=== PATIENT | female | born 1950 | race Caucasian/White ===

== ENCOUNTER → 2019-05-17 11:01 | Outpatient (BNVA) | payer MEDICARE, SELFPAY | PROVIDERS: Family Provider Family Medicine; PCP Family Medicine; Visit Provider Nurse Practitioner | DX: J40 Bronchitis, not specified as acute or chronic (principal); R09.81 Nasal congestion; R50.9 Fever, unspecified | CPT/HCPCS: 87804 ==

== ENCOUNTER → 2019-05-18 14:13 | Outpatient (BNVA) | payer MEDICARE, SELFPAY | PROVIDERS: Family Provider Family Medicine; PCP Family Medicine; Visit Provider Internal Medicine Rheumatology | DX: M05.759 Rheumatoid arthritis with rheumatoid factor of unspecified hip without organ or systems involvement (principal); Z79.899 Other long term (current) drug therapy; Z11.1 Encounter for screening for respiratory tuberculosis; Z11.59 Encounter for screening for other viral diseases; M19.90 Unspecified osteoarthritis, unspecified site; E11.9 Type 2 diabetes mellitus without complications; M25.552 Pain in left hip; Z79.84 Long term (current) use of oral hypoglycemic drugs; Z79.52 Long term (current) use of systemic steroids | CPT/HCPCS: 36415; 82565; 82652; 85025; 85651; 86140; 86480; 86704; 86705; 86706; 86709; 86803; 87340; 99204 ==

== ENCOUNTER 2019-05-25 10:47 | Outpatient (CLI) | payer MEDICARE, SELFPAY ==
--- NOTE | 2019-05-25 | XR_ITS ---
WS: [id number] Bilateral hips. HISTORY: Inflammatory arthritis. Mild narrowing of each hip joint. Mild osteophytic ridging around the acetabulum. No osseous destruct ion. No subluxation or erosions. XR/XR hip BI 3-4V wo/w pel [id number] IMPRESSION: Mild degenerative joint disease at each hip.
--- NOTE | 2019-05-25 10:53 | XR_ITS ---
WS: [id number] RIGHT FOOT: 3 VIEW(S) TECHNIQUE: PA, oblique and lateral. HISTORY: inflammatory arthritis COMPARISON: None available. No acute fracture or dislocation. Mild degenerative changes at the first metatarsophalangeal joint. N o erosions. Normal tarsal/metatarsal alignment. No soft tissue abnormality or bone destruction. Enthesopathy at the Achilles tendon attachment. XR/XR foot RT min 3V* [id number] IMPRESSION: Mild osteoarthritis first metatarsophalangeal joint.
--- NOTE | 2019-05-25 10:53 | XR_ITS ---
WS: [id number] RIGHT HAND: 3 VIEW(S) TECHNIQUE: PA, oblique and lateral. HISTORY: inflammatory arthritis COMPARISON: None available. No acute fracture or dislocation. Mild diffuse interphalangeal joint space narrowing. Early seagull wing deformities at the PIP joints. No marginal erosions. XR/XR hand RT min 3V* [id number] IMPRESSION: Mild interphalangeal joint space narrowing. Involves both the DIP and PIP joint s. Osteoarthritis and erosive arthritis should be considered.
--- NOTE | 2019-05-25 10:53 | XR_ITS ---
WS: [id number] CHEST 2 VIEWS HISTORY: inflammatory arthritis COMPARISON: 01/14/2019 Lungs: Hyperinflated lungs from emphysema. Flattening of the diaphragms. No pulmonary nodule or mass. Normal vasculature. Cardiac size: Normal. Mediastinum/Aorta: Normal mediastinum. Bones: Mild increase in thoracic kyphosis. XR/XR chest 2V* [id number] IMPRESSION: 1. Mild chronic emphysema. 2. No acute cardiopulmonary disease.
--- NOTE | 2019-05-25 10:53 | XR_ITS ---
WS: [id number] LEFT HAND: 3 VIEW(S) TECHNIQUE: PA, oblique and lateral. HISTORY: inflammatory arthritis COMPARISON: None available. No acute fracture or dislocation. No periarticular osteopenia. Mild narrowing of the interphalangeal joint spaces. Involvement of both the DIP joints and the PIP marcin ints. Mild early gullwing deformities greatest involving the PIP joints. Mild narrowing of first carp ometacarpal joint. No subluxation or erosions. XR/XR hand LT min 3V* [id number] IMPRESSION: 1. Mild changes of osteoarthritis and possible erosive arthritis. 2. No subluxation. 3. Moderate osteoarthritis at the first carpometacarpal joint.
--- NOTE | 2019-05-25 10:53 | XR_ITS ---
WS: [id number] LEFT FOOT: 3 VIEW(S) TECHNIQUE: PA, oblique and lateral. HISTORY: inflammatory arthritis COMPARISON: None available. No acute fracture or dislocation. Normal tarsal/metatarsal alignment. Mild narrowing of the first metatarsophalangeal joint. No subluxa tion. No soft tissue abnormality or bone destruction. XR/XR foot LT min 3V* [id number] IMPRESSION: Mild osteoarthritis at the first metatarsophalangeal joint.
== END 2019-05-25 10:48 | disposition home or self-care (01) ==
LOC: RADWPI 10:51
PROVIDERS: Family Provider Family Medicine; PCP Family Medicine; Referring Provider Family Medicine; Visit Provider Internal Medicine Rheumatology
DX: M18.0 Bilateral primary osteoarthritis of first carpometacarpal joints (principal); M19.072 Primary osteoarthritis, left ankle and foot; M19.071 Primary osteoarthritis, right ankle and foot; J43.9 Emphysema, unspecified; Z79.899 Other long term (current) drug therapy; M16.0 Bilateral primary osteoarthritis of hip
CPT/HCPCS: 71046; 73130; 73522; 73630

== ENCOUNTER → 2019-06-01 14:31 | Outpatient (BNVA) | payer MEDICARE, SELFPAY | PROVIDERS: Family Provider Family Medicine; PCP Family Medicine; Referring Provider Family Medicine; Visit Provider Internal Medicine Rheumatology | DX: M05.9 Rheumatoid arthritis with rheumatoid factor, unspecified (principal); R76.8 Other specified abnormal immunological findings in serum; Z11.59 Encounter for screening for other viral diseases; M16.11 Unilateral primary osteoarthritis, right hip; E11.9 Type 2 diabetes mellitus without complications; Z79.84 Long term (current) use of oral hypoglycemic drugs | CPT/HCPCS: 86704; 86705; 87517; 99214 ==

== ENCOUNTER 2019-06-10 11:37 | Inpatient (IN) | payer MEDICARE, SELFPAY ==
[2019-06-10] VITALS (9 sets, daily range): BP systolic 123–156; BP diastolic 72–83; PULSE 76–88; RESP 16–20; TEMP 37.1–38.9; O2SAT 92–98; BMI 27.1
--- NOTE | 2019-06-10 11:50 | ED_ITS ---
Entered by Elliot Camarillo, acting as scribe for Jun 10, 2019 11:37 HPI - Abdominal Pain General: Chief Complaint: Abdominal Pain Stated Complaint: ABD PAIN Time Seen by Provider: 06/10/19 11:50 History of Present Illness: HPI narrative: 69 yo female presents with abd pain. Pt states that her pain started yesterday, her pain has worsened today. pt states that she has a history of diverticulitis. Pt denies burning with urination or blood in her urine. Pt states that she is nauseated. Pt states that she had a bowel movement yesterday, it was a little loose. Pt denies black or bloody stool. MD elicited complaint: abdominal pain Associated Symptoms: Reports nausea; Denies chills, dysuria and fever(s) Review of Systems Const: Denies: fever, chills, body aches, change in appetite, change in weight, fatigue, malaise or night sweats Eyes: Denies: change in vision, blurry vision, blind spots, photophobia, eye discomfort or eye discharge ENMT: Denies: throat pain, uvular edema, enlarged tonsils, painful swallowing, hoarseness, mouth pain or swelling of lips/tongue Card: Denies: chest pain, palpitations, irregular heart rhythm, edema, swelling of feet/ankles, lightheadedness or shortness of breath when lying down Resp: Denies: shortness of breath, productive cough, non-productive cough, wheezing, stridor or pain on inspiration GI: Reports: abdominal pain and nausea : Denies: flank pain, difficulty urinating, painful urination, urinary frequency, urinary urgency or urinary hesitancy Musc: Denies: neck pain, back pain, extremity pain, extremity swelling or joint pain Skin/Breast: Denies: rash, itching, redness, sensitivity to light or skin pain Neuro: Denies: headache, numbness in extremities, weakness in extremities, changes in sensation or lack of coordination Psych: Denies: anxiety, depression, mood swings, panic attacks or sleeping less PFSH ED PFSH: Statuses (acute, chronic, etc) shown below reflect problem list status as previously entered and may not be historically accurate Medical History Diabetes mellitus (Acute) High risk medication use (Acute) Osteoarthritis (Acute) Rheumatoid arthritis (Acute) Family History Father Cancer Grandmother Cancer Mother Diabetes Rheumatoid arthritis Social History Smoking and tobacco status: current every day smoker cigarettes Quit status (tobacco): considering quitting Alcohol intake: never History of recent travel: No Physical Exam Const: COMMON NORMALS: no apparent distress, average body habitus, oriented x3, no limitations, healthy appearing, alert and well nourished HENMT: COMMON NORMALS: normocephalic, head/scalp atraumatic, hearing grossly normal bilaterally, external ears normal, EAC's normal, TM's normal bilaterally, external nose normal, nasal mucous membranes and turbinates normal, moist oral mucous membranes, oropharynx normal, dentition normal and gingiva normal HEAD & SCALP: normocephalic and atraumatic NOSE: external nose normal and nasal mucous membranes and turbinates normal EXTERNAL EAR: Yes external ears normal EXTERNAL AUDITORY CANAL: EAC's normal TYMPANIC MEMBRANE: TM's normal bilaterally THROAT: no uvular edema Eye: COMMON NORMALS: PERRL, EOMs intact bilaterally, conjunctivae normal, no scleral icterus, no papilledema, normal visual de leon by confrontation and fundi normal bilaterally CONJUNCTIVA: Yes conjunctivae normal PUPIL: Yes PERRL DIRECT OPHTHALMOSCOPY: Yes no papilledema and Yes fundi normal bilaterally Neck/C-Spine: COMMON NORMALS: full ROM, no lymphadenopathy, supple, no meningeal signs, no JVD, thyroid normal and no carotid bruits THYROID: thyroid normal Chest: COMMONS NORMALS: inspection of chest normal and palpation of chest normal Resp: COMMON NORMALS: normal respiratory effort, no retractions, no use of accessory muscles, clear to auscultation bilaterally and percussion normal AUSCULTATION: clear to auscultation bilaterally PERCUSSION: percussion normal Cardio: COMMON NORMALS: no JVD, regular rate, regular rhythm, S1 normal heart sound, S2 normal heart sound, no gallops, no clicks, no murmurs, no rub and peripheral pulses 2+ throughout RATE: regular rate RHYTHM: regular rhythm HEART SOUNDS: S1 normal and S2 normal PERIPHERAL PULSES: pulses 2+ throughout GI: COMMON NORMALS: soft to palpation; negative for non-tender PALPATION: Yes soft and Yes tender (diffusely.) : COMMON NORMALS: Yes no CVA tenderness and Yes external appearance normal BLADDER/KIDNEY EXAM: Yes no CVA tenderness Back/Pelvis: COMMON NORMALS: no CVA tenderness, thoracic and lumbar spine normal to inspection, no thoracic nor lumbar tenderness, thoraco-lumbar ROM normal and straight leg raise negative bilaterally Extremity: COMMON NORMALS: normal to inspection, full ROM, normal capillary refill, no joint enlargement, no clubbing, cyanosis or edema, no calf tenderness and no pedal edema Neuro: COMMON NORMALS: oriented x3 SENSORIUM/ORIENTATION: Yes alert MENINGEAL SIGNS: Yes no meningeal signs Skin: COMMON NORMALS: no rashes or lesions noted, no wounds, skin turgor normal, no jaundice, no petechiae and no mottling GENERAL SKIN EXAM: no rashes or lesions noted and turgor normal Course Vital Signs: Vital signs: Vital Signs Temperature 99 F 06/10/19 11:41 Pulse Rate 80 06/10/19 11:41 Respiratory Rate 16 06/10/19 12:40 Blood Pressure 156/83 06/10/19 11:41 Pulse Oximetry 98 06/10/19 12:40 MDM - Abdominal Pain Lab Data: Labs: Lab Results 06/10/19 06/10/19 06/10/19 Range/Units 12:03 12:03 12:10 WBC 10.4 H (4.0-10.0) 10^3/ uL RBC 5.33 H (4.1-5.3) 10^6/u L Hgb 15.7 H (11.5-15.3) g/dL Hct 47.2 H (37.0-47.0) % MCV 88.6 (81-99) fL MCH 29.5 (28.0-34.0) pg MCHC 33.3 (30.0-36.0) g/dL RDW 12.0 L (12.1-15.1) % Plt Count 196 (130-400) 10^3/c mm MPV 10.3 (7.4-10.4) fL Neut % (Auto) 69.4 % Lymph % (Auto) 20.5 % [place] % (Auto) 7.6 % Eos % (Auto) 1.3 % Baso % (Auto) 0.8 % Neut # (Auto) 7.2 (1.8-7.7) 10^3/u L Lymph # (Auto) 2.1 (0.8-4.8) 10^3/u L [place] # (Auto) 0.8 (0.2-0.9) 10^3/u L Eos # (Auto) 0.1 (0.0-0.8) 10^3/u L Baso # (Auto) 0.1 (0.0-0.1) 10^3/u L Nucleated RBC % (a uto) 0 % Nucleated RBCs # 0.0 /100WBC Sodium 135 L (136-145) mmol/L Potassium 4.1 (3.5-5.1) mmol/L Chloride 96 L (98-107) mmol/L Carbon Dioxide 25 (22-29) mmol/L Anion Gap 18.1 (5-19) BUN 12 (8-23) mg/dL Creatinine 0.6 (0.5-0.9) mg/dL GFR Calculation 98.8 (90-130) mL/min Glucose 352 H (74-106) mg/dL Lactate 2.1 (0.5-2.2) mmol/L Calcium 9.5 (8.5-10.5) mg/dL Total Bilirubin 0.5 (0.15-1.2) mg/dL AST 14 (0-32) U/L ALT 16 (0-33) U/L Alkaline Phosphata se 97 (35-105) IU/L Total Protein 7.6 (6.6-8.7) g/dL Albumin 3.8 (3.5-5.2) g/dL Globulin 3.8 (1.3-4.6) g/dL Discharge Plan Discharge Prescriptions: No Action metformin 850 mg tablet 850 mg PO BID RF: 0 glipizide 10 mg tablet extended release 24hr 10 mg PO BID RF: 0 meloxicam 15 mg tablet 15 mg PO ONCE RF: 0 cholecalciferol (vitamin D3) 5,000 unit capsule 5,000 unit PO .COMPLEX RF: 0 pantoprazole 40 mg tablet,delayed release (DR/EC) 40 mg PO BID RF: 0 Coding Level of Care Code ED Information Writer for [facility] Fwd Exam Problem Focused The documentation recorded by the Marquise martinez Kialy, accurately reflects the service I personally performed and the decisions made by , Jluis Thomas, DO Jun 10, 2019 11:37
--- NOTE | 2019-06-10 11:54 | XR_ITS ---
WS: [id number] Portable AP upright chest, 06/10/2019 Clinical Data: abd pain Comparison: PA and lateral chest, 05/25/2019 Findings: No nodules, masses or effusions are seen. The heart is normal. The pulmonary vascularity is not increased. No pneumonia or pneumothorax is seen. The aortic arch and descending aorta show tortu osity XR/XR chest 1V portable [id number] Impression: Atherosclerosis.
--- NOTE | 2019-06-10 11:56 | CT_ITS ---
WS: [id number] CT ABDOMEN AND PELVIS WITH CONTRAST HISTORY: abd pain, recurring abdominal pain for 3 days. TECHNIQUE: Imaging performed of the abdomen and pelvis with IV contrast. Single phase imaging of the abdomen. Coronal and sagittal reformats are submitted. All CT scans at [facility] use at least one of these dose optimization techniques: automated exposure control; mA and/or kV adjustment per patient size (includes targeted exams where dose is matched to clinical indication); or iterativ e reconstruction. IV CONTRAST: Omnipaque 300; 95 mL IV. Oral contrast: No DLP: 911.09 mGy.cm COMPARISON: 02/12/2019 Lower thorax: Lung bases are clear. Heart is normal size. No hiatal hernia. Liver/biliary system: Normal size with no intrahepatic dilatation. Gallbladder: Status post cholecystectomy. Pancreas: Normal. Spleen: Normal size spleen with numerous granulomata. Adrenal glands: Normal RIGHT adrenal gland. There is a stable 1.2 cm nodule associated with the later al limb of the LEFT adrenal gland. Right kidney: Normal. Left kidney: Normal. Aorta: Normal. Lymphadenopathy: None. Free fluid: There is a small amount of fluid in the pelvis. GI tract: Appendix has been removed. There is an area of severe inflammation surrounding the sigmoid. Inflammatory lesion extends over a length of approximately 10 cm with numerous diverticula. There is significant infiltration of the pericolonic fat and hyperemia of the vasa recta. Marked wall thicken ing with no abscess. Abdominal wall: Unremarkable abdominal wall. No hernia. Pelvis: Urinary bladder is normal. Prior hysterectomy. Small amount of free fluid in the LEFT pelvis. Bones: No compression fracture. No osteoblastic or osteolytic bone disease. CT/CT abdomen pelvis w con* [id number] IMPRESSION: 1. Moderate to severe acute sigmoid diverticulitis. No abscess at this time. 2. Small amount of free fluid in the LEFT pelvis. 3. Prior hysterectomy, cholecystectomy and appendectomy.
[2019-06-10 12:17] LABS: Basophils # 0.1 10^3/uL (0.0-0.1); Basophils % 0.8 %; Eosinophils # 0.1 10^3/uL (0.0-0.8); Eosinophils % 1.3 %; Hematocrit 47.2 % (37.0-47.0); Hemoglobin 15.7 g/dL (11.5-15.3); Lymphocytes # 2.1 10^3/uL (0.8-4.8); Lymphocytes % 20.5 %; Mean Corpuscular HGB Conc 33.3 g/dL (30.0-36.0); Mean Corpuscular Hemoglobin 29.5 pg (28.0-34.0); Mean Corpuscular Volume 88.6 fL (81-99); Mean Platelet Volume 10.3 fL (7.4-10.4); Monocytes # 0.8 10^3/uL (0.2-0.9); Monocytes % 7.6 %; Neutrophils # 7.2 10^3/uL (1.8-7.7); Neutrophils % 69.4 %; Nucleated Red Blood Cells % 0 %; Platelet Count 196 10^3/cmm (130-400); Red Blood Count 5.33 10^6/uL (4.1-5.3); White Blood Count 10.4 10^3/uL (4.0-10.0)
[2019-06-10 12:35] LABS: Lactate (Lactic Acid level) 2.1 mmol/L (0.5-2.2)
[2019-06-10 12:36] LABS: Alanine Aminotransferase 16 U/L (0-33); Albumin Level 3.8 g/dL (3.5-5.2); Alkaline Phosphatase 97 IU/L (35-105); Anion Gap 18.1 (5-19); Aspartate Amino Transferase 14 U/L (0-32); Blood Urea Nitrogen 12 mg/dL (8-23); Calcium 9.5 mg/dL (8.5-10.5); Carbon Dioxide 25 mmol/L (22-29); Chloride 96 mmol/L (98-107); Globulin 3.8 g/dL (1.3-4.6); Glomerular Filtration Rate 98.8 mL/min (90-130); Glucose 352 mg/dL (74-106); Potassium 4.1 mmol/L (3.5-5.1); Sodium 135 mmol/L (136-145); Total Bilirubin 0.5 mg/dL (0.15-1.2); Total Protein 7.6 g/dL (6.6-8.7)
[2019-06-10] MEDS: iohexol 300 mg/mL 100 mL Btl IV (12:37)
[2019-06-10] MEDS: ondansetron 2 mg/ML SDV 2 mL 4 MG IVP ×3 (12:40→19:39)
[2019-06-10] MEDS: morphine 4 mg/mL SDV 1 mL 1 MG IVP (12:40)
[2019-06-10] MEDS: sodium chloride 0.9% 500 ML IV (12:42)
--- NOTE | 2019-06-10 13:56 | PM.HP ---
Providers/Chief Complaint Primary Care Provider: Naima Tamayo DO Chief Complaint: ABD PAIN History of Present Illness Monica Wu is a 69 year old female that presents to the hospital with 5 to 6 days of abdominal pain, mainly suprapubic. She reports she has had multiple episodes of diverticulitis in the past. She has had some low-grade temperatures and chills. She has had no vomiting but some nausea. She reports she still has bowel movements. She denies any blood in her stool, or diarrhea. She reports she has not been on any antibiotics at this time for her condition. Review of Systems General: Reports: 10 or more systems reviewed and unremarkable except in HPI and below Const: Reports: fever and chills Eyes: Denies: change in vision ENMT: Denies: throat pain Card: Denies: chest pain Resp: Denies: shortness of breath GI: Reports: abdominal pain : Denies: flank pain Musc: Reports: joint stiffness Skin/Breast: Denies: rash Neuro: Denies: headache Psych: Denies: anxiety Endo: Denies: excessive urination Nico/Lymph: Denies: easy bruising All/Imm: Denies: hives Medications/Allergies Home Medications Medication Instructions Recorded Confirmed Last Taken Type ergocalciferol (vitamin D2) 50,000 unit PO Q7D 06/10/19 06/10/19 06/09/19 History [Vitamin D2] Allergies Allergy/AdvReac Type Severity Reaction Status Date / Time codeine Allergy ALGY-Anaphy Uncoded 06/01/19 14:46 laxis PFSH Acute PFSH: Statuses (acute, chronic, etc) shown below reflect problem list status as previously entered and may not be historically accurate Medical History (Updated 06/10/19 @ 14:06 by Raheem Bray MD) Adrenal adenoma (Acute) Diabetes mellitus (Acute) Sliding scale insulin Diverticulitis (Inactive) High risk medication use (Acute) Osteoarthritis (Acute) Rheumatoid arthritis (Acute) Currently being evaluated by rheumatology. Home medicine was only meloxicam. Not currently on any rheumatologic/immune suppressing medication. Surgical History (Updated 06/10/19 @ 14:00 by Raheem Bray MD) History of cataract surgery (Acute) History of cholecystectomy (Acute) History of hysterectomy (Acute) History of removal of ovarian cyst (Acute) Family History Father Cancer Grandmother Cancer Mother Diabetes Rheumatoid arthritis Social History Smoking and tobacco status: current every day smoker cigarettes Quit status (tobacco): considering quitting Alcohol intake: never History of recent travel: No Vitals/I&O/Wt Last Vital Signs Temp 99 F 06/10/19 11:41 Pulse 80 06/10/19 11:41 Resp 16 06/10/19 12:40 BP 156/83 06/10/19 11:41 Pulse Ox 98 06/10/19 12:40 Weight last 48 hrs Weight 78.471 kg Physical Exam Narrative: EXAM NARRATIVE: General exam is a white female in moderate abdominal pain HEENT: Pupils equally round. Oropharynx clear. Mucous membranes moist Neck is supple no lymphadenopathy or thyromegaly Cardiovascular regular in rhythm without murmur no S3 or S4 Lungs clear no wheezing or crackles Abdomen is soft with positive bowel sounds. Tenderness is present below the umbilicus on both sides. was deferred Extremities show no cyanosis clubbing or edema, cap refill brisk Skin no rash Neuro no focal deficits Data : 06/10/19 12:03 06/10/19 12:03 Micro: Microbiology 06/10/19 12:22 Blood Culture - Preliminary Blood SPECIMEN COLLECTED 06/10/19 12:10 Blood Culture - Preliminary Blood SPECIMEN COLLECTED Other data: CT scan demonstrated moderate to severe diverticulitis. Urine has not yet been reviewed. Chest x-ray negative. Blood cultures drawn A&P Assessment and plan (1) Diverticulitis: Moderate to severe diverticulitis. White blood cell count only slightly elevated. Low-grade temperature at home. Observation currently. Placed on IV Zosyn. Clear liquid diet. Status: Inactive Code(s): K57.92 - Diverticulitis of intestine, part unspecified, without perforation or abscess without bleeding (2) Diabetes mellitus: Status: Acute Qualifiers: Diabetes mellitus type: type 2 Diabetes mellitus chcf insulin use: without chcf use Code(s): E11.9 - Type 2 diabetes mellitus without complications (3) Rheumatoid arthritis: Status: Acute Code(s): M06.9 - Rheumatoid arthritis, unspecified Additional A&P Information Tobacco dependency. Counseling occurred. History of adrenal tumor, benign according to patient Attestations Medical Necessity Statement*: Will need less than 2 midnight stay for evaluation treatment of diverticulitis Coding Level of Care Code Acute Blower Installer for [facility] Fw Diagnoses Diverticulitis K57.92 Diabetes mellitus E11.9 Diabetes mellitus type: type 2 Diabetes mellitus regional intermodal truck driver insulin use: without regional intermodal truck driver use Rheumatoid arthritis M06.9
[2019-06-10 14:00] LABS: Add Urine Microscopic? NO
[2019-06-10 14:03] LABS: Bilirubin Urine Neg (NEGATIVE); Blood Urine Neg (Negative); Glucose Urine UA 4+ (Normal); Ketones Urine Negative (Negative); Leukocyte Esterase Urine Negative (Negative); Nitrate Urine Negative (Negative); Protein Urine Neg (Negative); Specific Gravity, Urine 1.005 (1.005-1.030); Urine Appearance Clear (CLEAR); Urine Color Straw (Yellow); Urobilinogen Urine Norm (Negative); pH Urine 5 (5-7)
[2019-06-10] MEDS: morphine 4 mg/mL SDV 1 mL 2 MG IVP ×2 (14:59→18:23)
[2019-06-10] MEDS: sodium chloride 0.9% 1,000 ML 100 ML IV (15:01)
[2019-06-10] MEDS: enoxaparin 40 mg/0.4 mL Syringe SUBCUT (15:59)
[2019-06-10] MEDS: piperacillin-tazobactam 3.375 GM in sodium chloride 0.9% (plus) 50 ML IV ×2 (16:00→22:51)
[2019-06-10] MEDS: pantoprazole DR 40 mg Tablet PO (16:01)
[2019-06-10 16:03] LABS: Glucose Point of Care 216 mg/dL (70-110)
[2019-06-10 20:25] LABS: Influenza A by IFA Negative (Negative); Influenza B by IFA Negative (Negative)
[2019-06-10] MEDS: acetaminophen 325 mg Tablet 650 MG PO (20:31)
[2019-06-10 21:10] LABS: Glucose Point of Care 260 mg/dL (70-110)
[2019-06-10 21:38] LABS: Protein Urine Neg (Negative); Specific Gravity, Urine 1.015 (1.005-1.030); Urine Appearance Clear (CLEAR); Urine Color Yellow (Yellow); pH Urine 5 (5-7)
[2019-06-10 21:39] LABS: Bilirubin Urine Neg (NEGATIVE); Blood Urine Neg (Negative); Glucose Urine UA 4+ (Normal); Ketones Urine Negative (Negative); Leukocyte Esterase Urine Negative (Negative); Nitrate Urine Negative (Negative); Urobilinogen Urine Norm (Negative)
[2019-06-10 21:41] LABS: Add Urine Culture? No; Bacteria Urine TRACE; RBC Urine 0-4 /hpf (0-2)
[2019-06-11] VITALS (11 sets, daily range): BP systolic 92–122; BP diastolic 49–68; PULSE 63–74; RESP 16–18; TEMP 36.6–37.8; O2SAT 90–95
[2019-06-11] MEDS: sodium chloride 0.9% 1,000 ML 100 ML IV ×3 (00:38→22:26)
[2019-06-11 05:23] LABS: Basophils # 0.1 10^3/uL (0.0-0.1); Basophils % 0.8 %; Eosinophils # 0.1 10^3/uL (0.0-0.8); Eosinophils % 2.1 %; Hemoglobin 13.6 g/dL (11.5-15.3); Lymphocytes # 1.9 10^3/uL (0.8-4.8); Lymphocytes % 30.9 %; Mean Corpuscular HGB Conc 33.2 g/dL (30.0-36.0); Mean Corpuscular Hemoglobin 29.4 pg (28.0-34.0); Mean Corpuscular Volume 88.6 fL (81-99); Mean Platelet Volume 10.2 fL (7.4-10.4); Monocytes # 0.6 10^3/uL (0.2-0.9); Monocytes % 9.6 %; Neutrophils # 3.5 10^3/uL (1.8-7.7); Neutrophils % 56.4 %; Nucleated Red Blood Cells % 0 %; Platelet Count 164 10^3/cmm (130-400); Red Blood Count 4.63 10^6/uL (4.1-5.3); White Blood Count 6.2 10^3/uL (4.0-10.0)
[2019-06-11] MEDS: morphine 4 mg/mL SDV 1 mL 2 MG IVP ×3 (05:36→14:50)
[2019-06-11] MEDS: ondansetron 2 mg/ML SDV 2 mL 4 MG IVP ×3 (05:36→18:05)
[2019-06-11 05:43] LABS: Anion Gap 13.1 (5-19); Blood Urea Nitrogen 6 mg/dL (8-23); Calcium 8.9 mg/dL (8.5-10.5); Carbon Dioxide 25 mmol/L (22-29); Chloride 104 mmol/L (98-107); Glomerular Filtration Rate 98.8 mL/min (90-130); Glucose 224 mg/dL (74-106); Osmolality Calculated 289 mOsm/kg (285-295); Potassium 4.1 mmol/L (3.5-5.1); Sodium 138 mmol/L (136-145)
[2019-06-11 06:41] LABS: Glucose Point of Care 239 mg/dL (70-110)
[2019-06-11] MEDS: piperacillin-tazobactam 3.375 GM in sodium chloride 0.9% (plus) 50 ML IV ×3 (06:58→22:59)
[2019-06-11 10:38] LABS: Glucose Point of Care 292 mg/dL (70-110)
--- NOTE | 2019-06-11 13:09 | PC.CHAP ---
Pastoral Care Encounter/Spiritual Assessment Type of Contact [] Declined metal off bearer visit [] Patient/Family/Request visit [] Outpatient visit [] Follow-up visit [] Physician referral [] Code/Alert [x] Routine visit [] Staff referral [] Actively dying [] Patient sleeping [] Family support [] [] Out of room [] Palliative care [] [] Receiving care in room [] Pre-surgical visit [] Trauma [] Long length of stay [] ICU visit [] Other: Relational/Emotional Strength [x] Patient feels connected with others/family/visitors/staff [] Distress [] Loneliness/isolation [] Abandonment Spirituality of Patient [x] Person of Ellie [x] Attends Amish of their Ellie [] Believes in Prayer [] Reads Bible or Rastafari materials [x] There are Spiritual issues to be addressed Tissue Specialist Interventions [x] Prayer [] Active listening [] Non-anxious presence [] Spiritual/emotional support [] Crisis/trauma care [] Spiritual counseling [] Bereavement support [] Provided bereavement packet [] Provided Bible/devotional materials [] Provided toy/stuffed animal, coloring book to patient or family member [] Provided Communion [] Anointing/[place] [] Salvation [x] Completed spiritual assessment [] Other: Impact on Illness or Injury [] Angry [] Fearful [] Anxious [] Often cries [] Exhaustion [] Unable to work [] Unable to attend evangelical [] Unable to walk/stand [] Unable to read [] Unable to drive [] Unable to eat/drink [] Unable to sleep [] Unable to be with family [] Patient intubated [] Other: Summary patient feelling better but still has paing Time spent with patient 10 min
--- NOTE | 2019-06-11 13:40 | P.PN_ITS ---
Subjective Subjective: Interval history: Monica reports she is feeling better. Abdominal pain is less. Fevers noted yesterday. Medications: Reviewed: Yes Vitals/I&O/Wt Last Vital Signs Temp 99.5 F 06/11/19 11:25 Pulse 73 06/11/19 13:19 Resp 18 06/11/19 11:25 BP 110/60 06/11/19 11:25 Pulse Ox 94 06/11/19 13:19 06/10/19 06/11/19 06/11/19 22:59 06:59 14:59 Intake Total 410 / 410 1251.667 / 4671.811 7630 / 1550 Output Total 200 / 200 Balance 210 / 210 1251.667 / 1511.636 4300 / 1550 Weight last 48 hrs Weight 78.471 kg Physical Exam Narrative: EXAM NARRATIVE: General exam is a white female in moderate abdominal pain HEENT: Pupils equally round. Oropharynx clear. Mucous membranes moist Neck is supple no lymphadenopathy or thyromegaly Cardiovascular regular in rhythm without murmur no S3 or S4 Lungs clear no wheezing or crackles Abdomen is soft with positive bowel sounds. Less tenderness than yesterday. Mainly on the left side today. was deferred Extremities show no cyanosis clubbing or edema, cap refill brisk Data : 06/11/19 05:10 06/11/19 05:10 Micro: Microbiology 06/10/19 12:22 Blood Culture - Preliminary Blood NEGATIVE TO DATE 06/10/19 12:10 Blood Culture - Preliminary Blood NEGATIVE TO DATE A&P Assessment and plan (1) Diverticulitis: Moderate to severe diverticulitis. White blood cell count only slightly elevated. Fever noted in the last 24 hours. Needs continued hospitalization to ensure she continues to improve. Will need continued clear liquid diet. Status: Inactive Code(s): K57.92 - Diverticulitis of intestine, part unspecified, without perforation or abscess without bleeding (2) Diabetes mellitus: Status: Acute Qualifiers: Diabetes mellitus type: type 2 Diabetes mellitus [facility] insulin use: without [facility] use Code(s): E11.9 - Type 2 diabetes mellitus without complications (3) Rheumatoid arthritis: Only on meloxicam. Not on immunologic medication. Status: Acute Code(s): M06.9 - Rheumatoid arthritis, unspecified Additional A&P Information Tobacco dependency. Counseling occurred. 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
[2019-06-11] MEDS: enoxaparin 40 mg/0.4 mL Syringe SUBCUT (14:51)
[2019-06-11 17:05] LABS: Glucose Point of Care 127 mg/dL (70-110)
[2019-06-11 21:11] LABS: Glucose Point of Care 232 mg/dL (70-110)
[2019-06-12 04:00] VITALS: BP 102/52; PULSE 79; RESP 19; TEMP 37.4; O2SAT 95
[2019-06-12 06:31] LABS: Glucose Point of Care 148 mg/dL (70-110)
[2019-06-12 06:32] LABS: Basophils # 0.1 10^3/uL (0.0-0.1); Basophils % 0.7 %; Eosinophils # 0.1 10^3/uL (0.0-0.8); Eosinophils % 1.8 %; Hematocrit 37.7 % (37.0-47.0); Hemoglobin 12.5 g/dL (11.5-15.3); Lymphocytes # 2.6 10^3/uL (0.8-4.8); Lymphocytes % 36.4 %; Mean Corpuscular HGB Conc 33.2 g/dL (30.0-36.0); Mean Corpuscular Hemoglobin 29.3 pg (28.0-34.0); Mean Corpuscular Volume 88.3 fL (81-99); Mean Platelet Volume 10.2 fL (7.4-10.4); Monocytes # 0.6 10^3/uL (0.2-0.9); Monocytes % 8.9 %; Neutrophils # 3.7 10^3/uL (1.8-7.7); Neutrophils % 52.1 %; Nucleated Red Blood Cells % 0 %; Platelet Count 161 10^3/cmm (130-400); Red Blood Count 4.27 10^6/uL (4.1-5.3); Red Cell Distribution Width 11.8 % (12.1-15.1); White Blood Count 7.2 10^3/uL (4.0-10.0)
[2019-06-12] MEDS: piperacillin-tazobactam 3.375 GM in sodium chloride 0.9% (plus) 50 ML IV ×3 (06:38→23:19)
[2019-06-12 07:04] LABS: Blood Urea Nitrogen 5 mg/dL (8-23); Calcium 8.9 mg/dL (8.5-10.5); Carbon Dioxide 28 mmol/L (22-29); Chloride 104 mmol/L (98-107); Glomerular Filtration Rate 82.7 mL/min (90-130); Glucose 152 mg/dL (74-106); Osmolality Calculated 287 mOsm/kg (285-295); Sodium 139 mmol/L (136-145)
[2019-06-12 07:10] VITALS: BP 112/61; PULSE 66; RESP 18; TEMP 37.2; O2SAT 95
[2019-06-12] MEDS: pantoprazole DR 40 mg Tablet PO (08:39)
[2019-06-12] MEDS: sodium chloride 0.9% 1,000 ML 100 ML IV (08:39)
--- NOTE | 2019-06-12 09:13 | PM.PN ---
Subjective Subjective: Interval history: Monica reports her abdomen hurts, but less so. She is able to ambulate. Medications: Reviewed: Yes Vitals/I&O/Wt Last Vital Signs Temp 99 F 06/12/19 07:10 Pulse 66 06/12/19 07:10 Resp 18 06/12/19 07:10 BP 112/61 06/12/19 07:10 Pulse Ox 95 06/12/19 07:10 06/11/19 06/12/19 06/12/19 22:59 06:59 14:59 Intake Total 1050 / 2650 50 / 2700 1526 / 1526 Output Total 300 / 300 Balance 1050 / 2650 -250 / 2400 1526 / 1526 Weight last 48 hrs Weight 78.471 kg Physical Exam Narrative: EXAM NARRATIVE: General exam is a white female in moderate abdominal pain Cardiovascular regular in rhythm without murmur no S3 or S4 Lungs clear no wheezing or crackles Abdomen is soft with positive bowel sounds. Slight tenderness persists. No rebound Extremities show no cyanosis clubbing or edema, cap refill brisk Data : 06/12/19 06:17 06/12/19 06:17 Micro: Microbiology 06/10/19 12:22 Blood Culture - Preliminary Blood NEGATIVE TO DATE 06/10/19 12:10 Blood Culture - Preliminary Blood NEGATIVE TO DATE A&P Assessment and plan (1) Diverticulitis: Moderate to severe diverticulitis. White blood cell count now normal. Still with some temperature elevations. On clear liquid diet. If remains afebrile throughout today we will start a full liquid diet tonight. Secondary to some persistent temperature elevations will continue IV antibiotics, and review of discharge as appropriate tomorrow. Status: Inactive Code(s): K57.92 - Diverticulitis of intestine, part unspecified, without perforation or abscess without bleeding (2) Diabetes mellitus: Status: Acute Qualifiers: Diabetes mellitus type: type 2 Diabetes mellitus correction insulin use: without terminal operations manager use Code(s): E11.9 - Type 2 diabetes mellitus without complications (3) Rheumatoid arthritis: Only on meloxicam. Not on immunologic medication. Status: Acute Code(s): M06.9 - Rheumatoid arthritis, unspecified Additional A&P Information Tobacco dependency. Counseling occurred. History of adrenal tumor, benign according to patient Attestations Medical Necessity Statement*: Needs continued hospitalization for IV antibiotics secondary to diverticulitis Coding Level of Care Code Acute [employer]pper for [facility] Diagnoses Diverticulitis K57.92 Diabetes mellitus E11.9 Diabetes mellitus type: type 2 Diabetes mellitus correction insulin use: without correction use Rheumatoid arthritis M06.9
[2019-06-12] MEDS: acetaminophen 325 mg Tablet 650 MG PO ×2 (09:18→23:22)
[2019-06-12 11:02] VITALS: BP 123/82; PULSE 58; RESP 18; TEMP 36.7; O2SAT 98
[2019-06-12 13:11] LABS: Glucose Point of Care 200 mg/dL (70-110)
[2019-06-12 15:12] VITALS: BP 118/63; PULSE 56; RESP 18; TEMP 36.6; O2SAT 92
[2019-06-12] MEDS: enoxaparin 40 mg/0.4 mL Syringe SUBCUT (15:13)
[2019-06-12 16:31] LABS: Glucose Point of Care 142 mg/dL (70-110)
[2019-06-12 20:00] VITALS: BP 123/64; PULSE 61; RESP 18; TEMP 36.8; O2SAT 94
[2019-06-12 20:34] LABS: Glucose Point of Care 196 mg/dL (70-110)
[2019-06-13] VITALS: BP 108/61; PULSE 62; RESP 18; TEMP 37; O2SAT 95
[2019-06-13 00:08] VITALS: PULSE 77; O2SAT 95
[2019-06-13 04:00] VITALS: BP 113/56; PULSE 51; RESP 18; TEMP 36.7; O2SAT 98
[2019-06-13] MEDS: sodium chloride 0.9% 1,000 ML 50 ML IV (06:03)
[2019-06-13] MEDS: piperacillin-tazobactam 3.375 GM in sodium chloride 0.9% (plus) 50 ML IV (06:03)
[2019-06-13 06:38] LABS: Glucose Point of Care 139 mg/dL (70-110)
[2019-06-13 08:00] VITALS: BP 124/62; PULSE 58; RESP 16; TEMP 36.9; O2SAT 93
[2019-06-13] MEDS: pantoprazole DR 40 mg Tablet PO (08:12)
--- NOTE | 2019-06-13 09:48 | P.DS_ITS ---
Discharge Providers Date of Admission: 06/11/19 13:40 Date of Discharge: Date of Discharge: June 13, 2019 Attending Provider at Admission: Raheem Bray MD Attending Provider at Discharge: Raheem rBay MD Primary Care Provider: Naima Tamayo DO Diagnoses at Discharge Discharge Diagnosis (1) Diverticulitis: Status: Inactive Problem details: Greatly improved (2) Diabetes mellitus: Status: Acute Problem details: Sliding scale insulin Qualifiers: Diabetes mellitus type: type 2 Diabetes mellitus oil heaterman insulin use: without oil heaterman use (3) Rheumatoid arthritis: Status: Acute Problem details: Follow-up with rheumatology Reason for Visit Reason for Visit: Reason For Visit: Diverticulitis Hospital Course Hospital Course: Monica is a 69-year-old white female who presented to the hospital with abdominal pain. She was found to have diverticulitis, moderate to severe but no abscess or perforation. She was placed in the hospital on Zosyn, and started on a clear liquid diet. During the course of her hospitalization she had fevers initially, which cleared. Blood cultures drawn while in the hospital were negative. By June 13 she reported much improvement in her abdominal discomfort. Slight amount of discomfort was still present. She had been afebrile for greater than 36 hours. She was having bowel movements. White blood cell count was normal the day previously. She wished to transition home and this was arranged. She will complete 11 more days of Cipro and Flagyl and will follow-up with primary care. Secondary to some recurrent episodes of diverticulitis she will discuss whether colectomy is warranted. Physical Exam Narrative: EXAM NARRATIVE: General exam no apparent distress Cardiovascular regular in rhythm without murmur Lungs clear Abdomen is soft, some generalized tenderness but no rebound. Markedly improved from admission. Discharge Data Data Completed and Pending: Completed Studies During Hospitalization Category Date Time Status CT abdomen pelvis w con* [id number] Urge nt Cat Scan 06/10/19 11:56 Completed XR chest 1V jenna ble [id number] Urgent Exams 06/10/19 11:54 Completed Pending at discharge Category Date Time Status Blood Culture Sta t Lab 06/10/19 12:22 Results Labs from last 24 hours 06/13/19 06/12/19 06/12/19 06:32 20:24 16:07 POC Glucose 139 196 142 06/12/19 11:00 POC Glucose 200 Vitals: Last Vital Signs Temp 98.4 F 06/13/19 08:00 Pulse 58 L 06/13/19 08:00 Resp 16 06/13/19 08:00 BP 124/62 06/13/19 08:00 Pulse Ox 93 06/13/19 08:00 Discharge Plan Discharge Patient Disposition: Home, Self-Care Condition: Fair Prescriptions: New ciprofloxacin HCl [Cipro] 500 mg tablet 500 mg PO BID Qty: 22 RF: 0 metronidazole [Flagyl] 500 mg tablet 500 mg PO QID Qty: 44 RF: 0 Continued metformin 850 mg tablet 850 mg PO BID RF: 0 glipizide 10 mg tablet extended release 24hr 10 mg PO BID RF: 0 cholecalciferol (vitamin D3) 5,000 unit capsule 5,000 unit PO .COMPLEX RF: 0 pantoprazole 40 mg tablet,delayed release (DR/EC) 40 mg PO BID RF: 0 Vitamin D2 1,250 mcg (50,000 unit) Capsule 50,000 unit PO Q7D RF: 0 Discontinued meloxicam 15 mg tablet 15 mg PO DAILY RF: 0 Discharge Orders: Discharge Order (Routine); Ordered 06/13/19 Ordered By: Raheem Bray Referrals: Naima Tamayo DO [Primary Care Provider] - 4-7 days Discharge Diet: GI Soft Discharge Activity: Resume usual activity Patient Instructions: Cholecystitis (ED), Abdominal Pain (ED) Activity Restrictions/Additional Instructions: Take all medicine as prescribed. See your primary care provider next week. Discussed with him whether surgical referral for possible colectomy is indicated when you are better. Discharge Attestations Time Spent in Discharge Care*: greater than 30 min Quality Metrics Clinical Quality Measures During this hospital stay, did patient experience: None Coding Level of Care Code Acute Clinical Director for [facility] Diagnoses Diverticulitis K57.92 Diabetes mellitus E11.9 Diabetes mellitus type: type 2 Diabetes mellitus [facility] insulin use: without [facility] use Rheumatoid arthritis M06.9
[2019-06-13 09:59] VITALS: BP 124/62; PULSE 58; RESP 16; TEMP 36.9; O2SAT 93
[2019-06-13] MEDS: metroNIDAZOLE 500 MG Tablet PO (10:45)
[2019-06-13] MEDS: ciprofloxacin 500 mg Tablet PO (10:45)
== END 2019-06-13 11:15 | disposition home or self-care (01) | DRG 392 ==
LOC: ER 13:48 → MEDSURG 14:16
PROVIDERS: Internal Medicine; Admitting Provider Internal Medicine; Emergency Provider Family Medicine; Family Provider Family Medicine; PCP Family Medicine; Visit Provider Internal Medicine
DX: K57.92 Diverticulitis of intestine, part unspecified, without perforation or abscess without bleeding (principal); E11.9 Type 2 diabetes mellitus without complications; M06.9 Rheumatoid arthritis, unspecified; F17.210 Nicotine dependence, cigarettes, uncomplicated
CPT/HCPCS: 12345; 36415; 36416; 71045; 74177; 80048; 80053; 81001; 81003; 82962; 83605; 85025; 87040; 87804; 96372; 96374; 96375; 99282; G0378; J1650; J1815; J2270; J2405; J2543; J7030; J7040; Q9967

== ENCOUNTER → 2019-07-15 08:55 | Outpatient (BNVA) | payer MEDICARE, SELFPAY | PROVIDERS: Family Provider Family Medicine; PCP Family Medicine; Visit Provider Family Medicine | DX: E11.9 Type 2 diabetes mellitus without complications (principal); K57.92 Diverticulitis of intestine, part unspecified, without perforation or abscess without bleeding; M19.90 Unspecified osteoarthritis, unspecified site | CPT/HCPCS: 82044; 83036 ==

== ENCOUNTER → 2019-07-15 13:40 | Outpatient (BNVA) | payer MEDICARE, SELFPAY | PROVIDERS: Family Provider Family Medicine; PCP Family Medicine; Visit Provider Internal Medicine | DX: R76.8 Other specified abnormal immunological findings in serum (principal) | CPT/HCPCS: 87517 ==

== ENCOUNTER 2019-10-25 14:51 | Outpatient (CLI) | payer MEDICARE, SELFPAY ==
--- NOTE | 2019-10-25 14:55 | XR_ITS ---
WS: [id number] XR ribs RT 2V* [id number] REASON FOR EXAM: right sided rib pain after fall FINDINGS: The ninth rib at its angle shows a fracture. There is no pleural effusion or pneumothorax. The lung de leon are well aerated. XR/XR ribs RT 2V* [id number] IMPRESSION: Fracture of the ninth rib at its angle.
== END 2019-10-25 14:52 | disposition home or self-care (01) ==
LOC: WPI 14:53
PROVIDERS: Family Provider Family Medicine; PCP Family Medicine; Visit Provider Family Medicine
DX: S22.31XA Fracture of one rib, right side, initial encounter for closed fracture (principal); X58.XXXA Exposure to other specified factors, initial encounter
CPT/HCPCS: 71100

== ENCOUNTER → 2020-07-27 09:08 | Outpatient (BNVA) | payer MEDICARE, MEDICAID, SELFPAY | PROVIDERS: Family Provider Family Medicine; PCP Family Medicine; Visit Provider Family Medicine | DX: E11.9 Type 2 diabetes mellitus without complications (principal); Z86.39 Personal history of other endocrine, nutritional and metabolic disease; B35.1 Tinea unguium; F51.04 Psychophysiologic insomnia; N60.81 Other benign mammary dysplasias of right breast; F17.219 Nicotine dependence, cigarettes, with unspecified nicotine-induced disorders; Z68.28 Body mass index [BMI] 28.0-28.9, adult | CPT/HCPCS: 80053; 80061; 82043; 82306; 83036; 85025 ==

== ENCOUNTER → 2020-08-24 10:37 | Outpatient (BNVA) | payer MEDICARE, MEDICAID, SELFPAY | PROVIDERS: Family Provider Family Medicine; PCP Family Medicine; Visit Provider Family Medicine | DX: E11.9 Type 2 diabetes mellitus without complications (principal); Z86.39 Personal history of other endocrine, nutritional and metabolic disease; M19.90 Unspecified osteoarthritis, unspecified site; F51.04 Psychophysiologic insomnia; M19.91 Primary osteoarthritis, unspecified site; Z68.28 Body mass index [BMI] 28.0-28.9, adult; F17.219 Nicotine dependence, cigarettes, with unspecified nicotine-induced disorders | CPT/HCPCS: 80053 ==

== ENCOUNTER → 2020-09-04 11:34 | Outpatient (BNVA) | payer MEDICARE, MEDICAID, SELFPAY | PROVIDERS: Family Provider Family Medicine; PCP Family Medicine; Visit Provider Nurse Practitioner Family | DX: Z20.822 Contact with and (suspected) exposure to COVID-19 (principal); J06.9 Acute upper respiratory infection, unspecified | CPT/HCPCS: 87635 ==

== ENCOUNTER 2020-09-08 05:57 | Outpatient (CLI) | payer MEDICARE, MEDICAID, SELFPAY ==
[2020-09-08 06:20] VITALS: BP 133/81; PULSE 60; RESP 18; TEMP 36.6; O2SAT 96
[2020-09-08 06:50] VITALS: RESP 18; O2SAT 100
--- NOTE | 2020-09-08 06:50 | AMB.MCA ---
Patient Information [facility] COVID test results: Nasal/Oral Coronavirus 2019 PCR Detected H 09/04/20 11:34 09/04/20 Criteria/Plan Inclusion/Exclusion Criteria weight >/= 40kg, + direct test </= 10 days ago and symptom onset </= 10 days ago age >/= 65 and has diabetes not requiring hospitalization, not requiring oxygen (if not chronically on oxygen) and no increase oxygen requirement (if chronically on oxygen) Patient education patient/family/caregiver received/reviewed fact sheet, Emergency Use Authorization/unapproved drug status discussed with patient/family/caregiver, alternatives to this treatment discussed with patient/family/caregiver, risks and benefits of medication reviewed with patient/family/caregiver, patient/family/caregiver given opportunity for questions, which were answered and patient consents to receiving Monoclonal Antibody Treatment Plan for treatment Meets criteria for Monoclonal Antibody infusion Ordering Monoclonal Antibody infusion for today
== END 2020-09-08 08:39 | disposition home or self-care (01) ==
LOC: ER 06:10
PROVIDERS: PCP Family Medicine; Visit Provider Nurse Practitioner Family
DX: U07.1 COVID-19 (principal)
CPT/HCPCS: 96365

== ENCOUNTER → 2020-10-16 09:22 | Outpatient (BNVA) | payer MEDICARE, MEDICAID, SELFPAY | PROVIDERS: PCP Family Medicine; Visit Provider Family Medicine | DX: E11.9 Type 2 diabetes mellitus without complications (principal); J30.89 Other allergic rhinitis; F17.219 Nicotine dependence, cigarettes, with unspecified nicotine-induced disorders; Z68.27 Body mass index [BMI] 27.0-27.9, adult | CPT/HCPCS: 80053; 80061; 83036 ==

== ENCOUNTER → 2021-02-12 10:56 | Outpatient (BNVA) | payer MEDICARE, MEDICAID, SELFPAY | PROVIDERS: PCP Family Medicine; Visit Provider Nurse Practitioner Family | DX: Z20.822 Contact with and (suspected) exposure to COVID-19 (principal) | CPT/HCPCS: 87635 ==

== ENCOUNTER → 2021-03-01 11:15 | Outpatient (BNVA) | payer MEDICARE, MEDICAID, SELFPAY | PROVIDERS: PCP Family Medicine; Visit Provider Family Medicine | DX: E11.9 Type 2 diabetes mellitus without complications (principal); E78.5 Hyperlipidemia, unspecified; R60.0 Localized edema; R53.83 Other fatigue; R05.3 Chronic cough | CPT/HCPCS: 80053; 80061; 83880; 84443; 85025 ==

== ENCOUNTER → 2021-03-02 07:11 | Outpatient (BNVA) | payer MEDICARE, MEDICAID, SELFPAY | PROVIDERS: PCP Family Medicine; Visit Provider Family Medicine | DX: E11.9 Type 2 diabetes mellitus without complications (principal); E78.5 Hyperlipidemia, unspecified; R60.0 Localized edema; R53.83 Other fatigue; R05.3 Chronic cough; E78.2 Mixed hyperlipidemia; Z87.891 Personal history of nicotine dependence | CPT/HCPCS: 83036 ==

== ENCOUNTER 2021-03-23 02:27 | Emergency (ER) | payer MEDICARE, MEDICAID, SELFPAY ==
[2021-03-23 02:32] VITALS: BP 155/82; PULSE 72; RESP 20; TEMP 36.7; O2SAT 97; BMI 26.9
--- NOTE | 2021-03-23 02:32 | XRR_ITS ---
PROCEDURE INFORMATION: Exam: XR Chest Exam date and time: 03/23/2021 2:32 AM Age: 70 years old Clinical indication: Chest pressure; Prior surgery; Surgery type: Gb; Patient HX: Lower chest/epigastric pain. ; Additional info: Cp TECHNIQUE: Imaging protocol: XR of the chest. Views: 1 view. COMPARISON: CR XR chest 1V portable [id number] 06/10/2019 12:24 PM FINDINGS: Lungs: Unremarkable. No consolidation. Pleural spaces: Unremarkable. No pleural effusion. No pneumothorax. Heart/Mediastinum: Unremarkable. No cardiomegaly. Bones/joints: No acute findings. XR/XR chest 1V portable [id number] IMPRESSION: No acute findings. Radiation Dose CTDIVOL = (mGy): DLP = (mGy-cm)
--- NOTE | 2021-03-23 02:32 | ECG_ITS ---
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 Measurements Intervals [place] Rate: 75 P: 23 NE: 147 QRS: 34 QRSD: 80 T: 65 QT: 376 QTc: 420 Interpretive Statements SINUS RHYTHM Compared to ECG 05/28/2017 01:55:34 T-wave abnormality no longer present Electronically Signed On 03-23-2021 19:46:41 CATERING SOUS CHEF by Jake Blackwell M.D. [id number]
--- NOTE | 2021-03-23 02:32 | CTR_ITS ---
PROCEDURE INFORMATION: Exam: CTA Chest With Contrast Exam date and time: 03/23/2021 2:32 AM Age: 70 years old Clinical indication: Nausea and vomiting; Abdominal pain; Prior surgery; Surgery type: Gb. Hysterectomy. ; Patient HX: Severe epigastric pain with posterior radiation. N/v. ; Additional info: Abd pain TECHNIQUE: Imaging protocol: Computed tomographic angiography of the chest with contrast. 3D rendering (Not supervised by radiologist): MIP and/or 3D reconstructed images were created by the technologist. Radiation optimization: All CT scans at this facility use at least one of these dose optimization techniques: automated exposure control; mA and/or kV adjustment per patient size (includes targeted exams where dose is matched to clinical indication); or iterative reconstruction. Contrast material: OMNI 350; Contrast volume: 95 ml; Contrast route: INTRAVENOUS (IV); COMPARISON: CR (CHEST, ) 03/23/2021 2:59 AM RADIATION DOSE METRICS: Total DLP (mGy-cm): 1878.64 FINDINGS: Pulmonary arteries: Normal. No pulmonary emboli. Aorta: No aortic aneurysm. No aortic dissection. Lungs: Calcified pulmonary granulomatous change. Pleural spaces: No pneumothorax. No pleural effusion. Heart: Mild coronary arterial calcifications are noted. Lymph nodes: No enlarged lymph nodes. Bones/joints: No acute fracture. Soft tissues: Unremarkable. IMPRESSION: No acute findings. PROCEDURE INFORMATION: Exam: CT Abdomen And Pelvis With Contrast Exam date and time: 03/23/2021 2:32 AM Age: 70 years old Clinical indication: Nausea and vomiting; Abdominal pain; Prior surgery; Surgery type: Gb. Hysterectomy. ; Patient HX: Severe epigastric pain with posterior radiation. N/v. ; Additional info: Abd pain TECHNIQUE: Imaging protocol: Computed tomography of the abdomen and pelvis with contrast. Radiation optimization: All CT scans at this facility use at least one of these dose optimization techniques: automated exposure control; mA and/or kV adjustment per patient size (includes targeted exams where dose is matched to clinical indication); or iterative reconstruction. Contrast material: OMNI 350; Contrast volume: 95 ml; Contrast route: INTRAVENOUS (IV); COMPARISON: CR (CHEST, ) 03/23/2021 2:59 AM RADIATION DOSE METRICS: Total DLP (mGy-cm): 1878.64 FINDINGS: Liver: Normal. No mass. Gallbladder and bile ducts: Cholecystectomy. Stable prominence of bile ducts can represent a normal finding in this setting especially if there are no clinical or laboratory findings to suggest obstructive process. Pancreas: Normal. No ductal dilation. Spleen: Spleen shows calcified granulomatous change. Normal size. Adrenal glands: Small nodule on the left unchanged for at least 2 years and likely benign. Kidneys and ureters: Normal. No hydronephrosis. Stomach and bowel: Colonic diverticuli noted. No evident pericolic inflammatory change. Fluid seen in nondilated small bowel and proximal colon. Appendix: No evidence of appendicitis. Intraperitoneal space: Unremarkable. No free air. No significant fluid collection. Vasculature: Unremarkable. No abdominal aortic aneurysm. Lymph nodes: Unremarkable. No enlarged lymph nodes. Urinary bladder: Unremarkable as visualized. Reproductive: Hysterectomy. Bones/joints: No acute fracture. Soft tissues: Unremarkable. CT/CT angio chest w abd pel w con IMPRESSION: No acute findings. Radiation Dose CTDIVOL = (mGy): DLP = 1878.64~1878.64 (mGy-cm)
--- NOTE | 2021-03-23 02:36 | ED_ITS ---
HPI - Abdominal Pain General: Chief Complaint: Abdominal Pain Stated Complaint: UPPER GASTRIC PAIN Time Seen by Provider: 03/23/21 02:28 Source: patient and EMS Mode of arrival: EMS Limitations: no limitations History of Present Illness: HPI narrative: 70-year-old female states that starting roughly 1 to 2 hours ago she had a sharp pain in her epigastric region that radiated to her back. States pain is currently 6 out of 10 is an 8 out of 10 earlier she did have nausea and vomited once she received Phenergan her nausea is improved but still has some nausea as well. She denies any chest pain she had a cholecystectomy before denies any heart history no history of known aneurysms. She denies any worsening improving factors. Associated Symptoms: Reports nausea and vomiting; Denies chills, dysuria and fever(s) Review of Systems Const: Denies: fever(s), chills, body aches or change in appetite Eyes: Denies: blurry vision or eye discomfort ENMT: Denies: throat pain or dental pain Card: Denies: chest pain Resp: Denies: dyspnea GI: Reports: abdominal pain, nausea and vomiting : Denies: dysuria Musc: Denies: neck pain or back pain Skin/Breast: Denies: rash Neuro: Denies: headache(s) Psych: Denies: depression Nico/Lymph: Denies: easy bruising All/Imm: Denies: urticaria PFSH ED PFSH: Medical History Adrenal adenoma Diverticulitis Hepatitis B core antibody positive History of COVID-19 Hyperlipidemia Osteoarthritis Rheumatoid arthritis Follow-up with rheumatology Type 2 diabetes mellitus, without long-term current use of insulin Surgical History History of cataract surgery History of cholecystectomy History of esophagogastroduodenoscopy (EGD) History of hysterectomy History of removal of ovarian cyst Status post colonoscopy (~2019) Family History Father Cancer Grandmother Cancer Mother Diabetes Rheumatoid arthritis Denies family history of Anesthesia complication Bleeding disorder Social History Smoking and tobacco status: former smoker Alcohol intake: never History of recent travel: No Physical Exam Const: COMMON NORMALS: no acute distress, patient oriented x3 and healthy appearing HENMT: COMMON NORMALS: normocephalic and atraumatic HEAD & SCALP: normocephalic and atraumatic Eye: COMMON NORMALS: Equal, round and reactive pupils present and EOMs intact bilaterally PUPIL: Yes Equal, round and reactive pupils present Neck/C-Spine: COMMON NORMALS: full ROM and supple Chest: COMMONS NORMALS: normal inspection of the chest and normal palpation of entire chest wall Resp: COMMON NORMALS: normal respiratory effort, No retractions, No use of accessory muscles and clear to auscultation bilaterally AUSCULTATION: clear to auscultation bilaterally Cardio: COMMON NORMALS: regular rate, regular rhythm and No murmurs present (Cardio) RATE: regular rate RHYTHM: regular rhythm GI: COMMON NORMALS: Normal to inspection, nondistended, normoactive bowel so unds present, Soft to palpation and no masses PALPATION: Yes Soft to palpation and Yes Tenderness to palpation present (GI) (epigastric) Details: other Extremity: COMMON NORMALS: normal to inspection and full ROM Neuro: COMMON NORMALS: patient oriented x3, moves all extremities and no focal motor deficits Psych: COMMON NORMALS: mental status grossly normal, Normal thought process present and cooperative THOUGHT PROCESS: Normal thought process present Skin: COMMON NORMALS: no rashes or lesions noted and no wounds GENERAL SKIN EXAM: no rashes or lesions noted Course Vital Signs: Vital signs: Vital Signs Temperature 99.0 F 03/23/21 03:00 Pulse Rate 77 03/23/21 03:00 Respiratory Rate 20 H 03/23/21 03:00 Blood Pressure 139/67 03/23/21 03:00 Pulse Oximetry 97 03/23/21 03:00 MDM - Abdominal Pain MDM Narrative: Medical decision making narrative: Patient presents here with abdominal pain since resolved. She states she does have a history esophageal spasms could have been that she has no signs of aneurysm patient's blood work here is all normal no signs of cardiac cause. She is stable for discharge she is to follow-up with PCP and return if worsening she understands agrees to plan. Lab Data: Labs: Lab Results 03/23/21 03/23/21 03/23/21 02:40 02:40 02:40 WBC 11.2 10^3/uL H 10 ^3/uL (4.0-10.0) RBC 5.66 10^6/uL H 10 ^6/uL (4.1-5.3) Hgb 17.0 g/dL H g/dL (11.5-15.3) Hct 51.3 % H % (37.0-47.0) MCV 90.6 fl fl (81-99) MCH 30.0 pg pg (28.0-34.0) MCHC 33.1 g/dL g/dL (30.0-36.0) RDW 12.6 % % (12.1-15.1) Plt Count 199 10^3/cmm 10^3 /cmm (130-400) MPV 10.1 fL fL (7.4-10.4) Neut % (Auto) 85.5 % % Lymph % (Auto) 7.8 % % [place] % (Auto) 5.2 % % Eos % (Auto) 0.5 % % Baso % (Auto) 0.6 % % Neut # (Auto) 9.60 10^3/uL H 10 ^3/uL (1.8-7.7) Lymph # (Auto) 0.9 10^3/uL 10^3/ uL (0.8-4.8) [place] # (Auto) 0.6 10^3/uL 10^3/ uL (0.2-0.9) Eos # (Auto) 0.1 10^3/uL 10^3/ uL (0.0-0.8) Baso # (Auto) 0.1 10^3/uL 10^3/ uL (0.0-0.1) Nucleated RBC % (a uto) 0 % % Nucleated RBCs # 0.0 /100WBC /100W BC Sodium 140 mmol/L mmol/L (136-145) Potassium 3.8 mmol/L mmol/L (3.5-5.1) Chloride 102 mmol/L mmol/L (98-107) Carbon Dioxide 26 mmol/L mmol/L (22-29) Anion Gap 15.8 (5-19) BUN 16 mg/dL mg/dL (8-23) Creatinine 0.7 mg/dL mg/dL (0.5-0.9) GFR Calculation Not Reportable Glucose 187 mg/dL H mg/dL (65-115) Calculated Osmolal ity 296 mOsm/kg H mOs m/kg (285-295) Lactate 1.7 mmol/L mmol/L (0.5-2.2) Calcium 9.2 mg/dL mg/dL (8.5-10.5) Total Bilirubin 0.4 mg/dL mg/dL (0.15-1.2) AST 13 U/L U/L (0-32) ALT 12 U/L U/L (0-33) Alkaline Phosphata se 89 IU/L IU/L (35-105) Troponin T Baselin e Troponin T 120 Min [facility] [place] Troponin T Total Protein 6.8 g/dL g/dL (6.6-8.7) Albumin 4.2 g/dL g/dL (3.5-5.2) Globulin 2.6 g/dL g/dL (1.3-4.6) Lipase 39 U/L U/L (13-60) Urine Color Urine Appearance Urine pH Ur Specific Gravit y Urine Protein Urine Glucose (UA) Urine Ketones Urine Blood Urine Nitrate Urine Bilirubin Urine Urobilinogen Ur Leukocyte Corrina ase 03/23/21 03/23/21 03/23/21 02:40 03:55 04:40 WBC RBC Hgb Hct MCV MCH MCHC RDW Plt Count MPV Neut % (Auto) Lymph % (Auto) [place] % (Auto) Eos % (Auto) Baso % (Auto) Neut # (Auto) Lymph # (Auto) [place] # (Auto) Eos # (Auto) Baso # (Auto) Nucleated RBC % (a uto) Nucleated RBCs # Sodium Potassium Chloride Carbon Dioxide Anion Gap BUN Creatinine GFR Calculation Glucose Calculated Osmolal ity Lactate Calcium Total Bilirubin AST ALT Alkaline Phosphata se Troponin T Baselin e 11 ng/L H ng/L (0-10) Troponin T 120 Min [facility] 11.12 ng/L H ng/L (0-10) Delta Troponin T 0.12 ABS# ABS# (0-10) Total Protein Albumin Globulin Lipase Urine Color Yellow (Yellow) Urine Appearance Clear (CLEAR) Urine pH 5 (5-7) Ur Specific Gravit y 1.015 (1.005-1.030) Urine Protein Neg (Negative) Urine Glucose (UA) 4+ H (Normal) Urine Ketones Negative (Negative) Urine Blood Neg (Negative) Urine Nitrate Negative (Negative) Urine Bilirubin Neg (Negative) Urine Urobilinogen Norm mg/dL mg/dL (Negative) Ur Leukocyte Corrina ase Negative (Negative) Imaging Data ^: CT Abd/Pel: Attestation: I personally reviewed and interpreted this imaging study as follows: Radiologist's impression: [facility] [address] [address] Scan Report Signed Patient: Monica Wu Unit #: [id number] : 1950 Age/Sex: 70 / F ADM Date: 03/23/21 Loc: ER Room/Bed: Attending Dr: Ordering Provider/Ordering MD: Antwan Gu MD Date of Service: 03/23/21 Procedure(s): CT angio chest w abd pel w con Accession Number(s): [id number] Report Number: [id number] PROCEDURE INFORMATION: Exam: CTA Chest With Contrast Exam date and time: 03/23/2021 2:32 AM Age: 70 years old Clinical indication: Nausea and vomiting; Abdominal pain; Prior surgery; Surgery type: Gb. Hysterectomy. ; Patient HX: Severe epigastric pain with posterior radiation. N/v. ; Additional info: Abd pain TECHNIQUE: Imaging protocol: Computed tomographic angiography of the chest with contrast. 3D rendering (Not supervised by radiologist): MIP and/or 3D reconstructed images were created by the technologist. Radiation optimization: All CT scans at this facility use at least one of these dose optimization techniques: automated exposure control; mA and/or kV adjustment per patient size (includes targeted exams where dose is matched to clinical indication); or iterative reconstruction. Contrast material: OMNI 350; Contrast volume: 95 ml; Contrast route: INTRAVENOUS (IV); COMPARISON: CR (CHEST, ) 03/23/2021 2:59 AM RADIATION DOSE METRICS: Total DLP (mGy-cm): 1878.64 FINDINGS: Pulmonary arteries: Normal. No pulmonary emboli. Aorta: No aortic aneurysm. No aortic dissection. Lungs: Calcified pulmonary granulomatous change. Pleural spaces: No pneumothorax. No pleural effusion. Heart: Mild coronary arterial calcifications are noted. Lymph nodes: No enlarged lymph nodes. Bones/joints: No acute fracture. Soft tissues: Unremarkable. IMPRESSION: No acute findings. PROCEDURE INFORMATION: Exam: CT Abdomen And Pelvis With Contrast Exam date and time: 03/23/2021 2:32 AM Age: 70 years old Clinical indication: Nausea and vomiting; Abdominal pain; Prior surgery; Surgery type: Gb. Hysterectomy. ; Patient HX: Severe epigastric pain with posterior radiation. N/v. ; Additional info: Abd pain TECHNIQUE: Imaging protocol: Computed tomography of the abdomen and pelvis with contrast. Radiation optimization: All CT scans at this facility use at least one of these dose optimization techniques: automated exposure control; mA and/or kV adjustment per patient size (includes targeted exams where dose is matched to clinical indication); or iterative reconstruction. Contrast material: OMNI 350; Contrast volume: 95 ml; Contrast route: INTRAVENOUS (IV); COMPARISON: CR (CHEST, ) 03/23/2021 2:59 AM RADIATION DOSE METRICS: Total DLP (mGy-cm): 1878.64 FINDINGS: Liver: Normal. No mass. Gallbladder and bile ducts: Cholecystectomy. Stable prominence of bile ducts can represent a normal finding in this setting especially if there are no clinical or laboratory findings to suggest obstructive process. Pancreas: Normal. No ductal dilation. Spleen: Spleen shows calcified granulomatous change. Normal size. Adrenal glands: Small nodule on the left unchanged for at least 2 years and likely benign. Kidneys and ureters: Normal. No hydronephrosis. Stomach and bowel: Colonic diverticuli noted. No evident pericolic inflammatory change. Fluid seen in nondilated small bowel and proximal colon. Appendix: No evidence of appendicitis. Intraperitoneal space: Unremarkable. No free air. No significant fluid collection. Vasculature: Unremarkable. No abdominal aortic aneurysm. Lymph nodes: Unremarkable. No enlarged lymph nodes. Urinary bladder: Unremarkable as visualized. Reproductive: Hysterectomy. Bones/joints: No acute fracture. Soft tissues: Unremarkable. CT/CT angio chest w abd pel w con IMPRESSION: No acute findings. Radiation Dose CTDIVOL = (mGy): DLP = 1878.64 1878.64 (mGy-cm) Dictated By: Elio Murphy MD Signed By: Elio Murphy MD Signed Date/Time: 03/23/21 0355 EKG Data ^: EKG 1: Attestation: I personally reviewed and interpreted this EKG as follows: EKG interpretation date: 03/23/21 EKG interpretation time: 03:09 Interpretation: nsr hr [address] or t wave abnormalities qrs 80 qtc 404 Discharge Plan Discharge Patient Disposition: Home Clinical Impression: Abdominal pain Qualifiers: Abdominal location: epigastric Qualified Code(s): R10.13 - Epigastric pain Condition: Stable Prescriptions: New ondansetron 4 mg tablet,disintegrating 4 mg PO Q6H PRN (Reason: nausea and vomiting) Qty: 14 RF: 0 No Action trazodone 50 mg tablet 50 mg PO DAILY PRN (Reason: insomnia) Qty: 90 RF: 0 meloxicam 15 mg tablet 15 mg PO DAILY Qty: 90 RF: 1 omeprazole 40 mg capsule,delayed release(DR/EC) 40 mg PO DAILY Qty: 30 RF: 0 (DME) blood-glucose meter [Accu-Chek Catrina Plus Meter] Misc See Rx Instructions .ROUTE .MEDSUPPLY Qty: 1 RF: 0 (DME) Accu-Chek Catrina Plus test strp Strip See Rx Instructions .ROUTE .MEDSUPPLY Qty: 100 RF: 5 (DME) Easy Touch Test Strip Strip See Rx Instructions .ROUTE .MEDSUPPLY Qty: 100 RF: 5 Januvia 100 mg tablet 100 mg PO DAILY Qty: 90 RF: 0 glipizide 5 mg tablet 5 mg PO BID 90 Days Qty: 180 RF: 0 alendronate [Fosamax] 70 mg tablet 70 mg PO .ONCE WEEKLY Qty: 12 RF: 0 Invokana 100 mg tablet 100 mg PO QAM Qty: 90 RF: 0 Invokana 300 mg tablet 300 mg PO DAILY 90 Days Qty: 90 RF: 0 atorvastatin 20 mg tablet 20 mg PO .AT BEDTIME 90 Days Qty: 90 RF: 1 Discharge Orders: Discharge ED (Routine); Ordered 03/23/21 Ordered By: Antwan Gu Referrals: Naima Tamayo DO [Primary Care Provider] - 1-3 days Discharge Diet: Advance as tolerated Discharge Activity: Resume usual activity Patient Instructions: Abdominal Pain (ED) Coding Level of Care Code ED Flatwork Finisher for Chg Fwd Exam Comprehensive
[2021-03-23 02:50] VITALS: RESP 20
[2021-03-23] MEDS: ondansetron 2 mg/ML SDV 2 mL 4 MG IVP (02:50)
[2021-03-23] MEDS: morphine 4 mg/mL SDV 1 mL 2 MG IVP (02:50)
[2021-03-23 02:54] LABS: Basophils # 0.1 10^3/uL (0.0-0.1); Basophils % 0.6 %; Eosinophils # 0.1 10^3/uL (0.0-0.8); Eosinophils % 0.5 %; Hematocrit 51.3 % (37.0-47.0); Lymphocytes # 0.9 10^3/uL (0.8-4.8); Lymphocytes % 7.8 %; Mean Corpuscular HGB Conc 33.1 g/dL (30.0-36.0); Mean Corpuscular Volume 90.6 fl (81-99); Mean Platelet Volume 10.1 fL (7.4-10.4); Monocytes # 0.6 10^3/uL (0.2-0.9); Monocytes % 5.2 %; Neutrophils % 85.5 %; Nucleated Red Blood Cells % 0 %; Platelet Count 199 10^3/cmm (130-400); Red Blood Count 5.66 10^6/uL (4.1-5.3); Red Cell Distribution Width 12.6 % (12.1-15.1); White Blood Count 11.2 10^3/uL (4.0-10.0)
[2021-03-23 03:00] VITALS: BP 139/67; PULSE 77; RESP 20; TEMP 37.2; O2SAT 97
[2021-03-23 03:17] LABS: Troponin(5th) Baseline 11 ng/L (0-10)
[2021-03-23 03:20] LABS: Lactate (Lactic Acid level) 1.7 mmol/L (0.5-2.2)
[2021-03-23 03:21] LABS: Alanine Aminotransferase 12 U/L (0-33); Albumin Level 4.2 g/dL (3.5-5.2); Alkaline Phosphatase 89 IU/L (35-105); Anion Gap 15.8 (5-19); Aspartate Amino Transferase 13 U/L (0-32); Blood Urea Nitrogen 16 mg/dL (8-23); Calcium 9.2 mg/dL (8.5-10.5); Carbon Dioxide 26 mmol/L (22-29); Chloride 102 mmol/L (98-107); Globulin 2.6 g/dL (1.3-4.6); Glucose 187 mg/dL (65-115); Lipase 39 U/L (13-60); Osmolality Calculated 296 mOsm/kg (285-295); Potassium 3.8 mmol/L (3.5-5.1); Sodium 140 mmol/L (136-145); Total Bilirubin 0.4 mg/dL (0.15-1.2); Total Protein 6.8 g/dL (6.6-8.7)
[2021-03-23] MEDS: iohexol 350 mg/mL 100 mL Btl IV (03:22)
[2021-03-23 04:03] LABS: Add Urine Microscopic? NO; Charge for UA Resulting for Rev
[2021-03-23 04:27] LABS: Bilirubin Urine Neg (Negative); Blood Urine Neg (Negative); Glucose Urine UA 4+ (Normal); Ketones Urine Negative (Negative); Leukocyte Esterase Urine Negative (Negative); Nitrate Urine Negative (Negative); Protein Urine Neg (Negative); Specific Gravity, Urine 1.015 (1.005-1.030); Urine Appearance Clear (CLEAR); Urine Color Yellow (Yellow); Urobilinogen Urine Norm (Negative); pH Urine 5 (5-7)
[2021-03-23 05:06] LABS: Troponin 5 2HR 11.12 ng/L (0-10); Troponin 5 2HR Delta 0.12 ABS# (0-10)
[2021-03-23 05:50] VITALS: BP 138/78; PULSE 78; RESP 20; O2SAT 99
== END 2021-03-23 05:52 | disposition home or self-care (01) ==
PROVIDERS: Emergency Provider Emergency Medicine; PCP Family Medicine
DX: R10.13 Epigastric pain (principal); Z79.84 Long term (current) use of oral hypoglycemic drugs; Z86.19 Personal history of other infectious and parasitic diseases; E78.5 Hyperlipidemia, unspecified; E11.9 Type 2 diabetes mellitus without complications; Z87.891 Personal history of nicotine dependence
CPT/HCPCS: 71045; 71275; 74177; 80053; 81003; 83605; 83690; 84484; 85025; 93005; 96374; 96375; 99284; J2270; J2405; Q9967

== ENCOUNTER → 2021-09-03 09:01 | Outpatient (BNVA) | payer MEDICARE, MEDICAID, SELFPAY | PROVIDERS: PCP Family Medicine; Visit Provider Family Medicine | DX: E11.9 Type 2 diabetes mellitus without complications (principal); M19.90 Unspecified osteoarthritis, unspecified site; R05.3 Chronic cough; Z86.39 Personal history of other endocrine, nutritional and metabolic disease; J30.9 Allergic rhinitis, unspecified; G47.33 Obstructive sleep apnea (adult) (pediatric); Z78.0 Asymptomatic menopausal state; K21.9 Gastro-esophageal reflux disease without esophagitis; M19.91 Primary osteoarthritis, unspecified site; Z12.31 Encounter for screening mammogram for malignant neoplasm of breast | CPT/HCPCS: 80053; 83036 ==

== ENCOUNTER → 2021-12-11 11:39 | Outpatient (BNVA) | payer MEDICARE, MEDICAID, SELFPAY | PROVIDERS: PCP Family Medicine; Visit Provider Family Medicine | DX: E11.9 Type 2 diabetes mellitus without complications (principal) | CPT/HCPCS: 80053; 82043; 83036 ==

== ENCOUNTER → 2021-12-26 11:21 | Outpatient (BNVA) | payer MEDICARE, MEDICAID, SELFPAY | PROVIDERS: PCP Family Medicine; Visit Provider Surgery | DX: K21.9 Gastro-esophageal reflux disease without esophagitis (principal); R13.10 Dysphagia, unspecified; K21.00 Gastro-esophageal reflux disease with esophagitis, without bleeding | CPT/HCPCS: 99213 ==

== ENCOUNTER 2022-02-26 08:02 | Outpatient (CLI) | payer MEDICARE, MEDICAID, SELFPAY ==
--- NOTE | 2022-02-26 08:30 | FL_ITS ---
WS: [id number] MODIFIED BARIUM SWALLOW HISTORY: Difficulty swallowing liquids and solids. FLUOROSCOPY TIME: 1min [phone] # of spot films: 0 Modified barium swallow was performed by the speech pathologist. Fluoroscopy was provided with the pa tient in a lateral projection. Multiple food consistencies were provided. Patient swallowed all food consistencies without difficulty. No aspiration or laryngeal penetration. Food bolus was prepared and swallowed normally. Barium tablet swallowed normally. FL/FL barium swallow modifd [address]15 IMPRESSION: Normal modified swallowing exam. Please see speech therapist report also for recommendations.
== END 2022-02-26 08:03 | disposition home or self-care (01) ==
LOC: RAD 08:03
PROVIDERS: PCP Family Medicine; Visit Provider Surgery
DX: K21.9 Gastro-esophageal reflux disease without esophagitis (principal); R13.10 Dysphagia, unspecified
CPT/HCPCS: 74230; 92611

== ENCOUNTER → 2022-03-18 09:14 | Outpatient (BNVA) | payer MEDICARE, MEDICAID, SELFPAY | PROVIDERS: PCP Family Medicine; Visit Provider Family Medicine | DX: E78.2 Mixed hyperlipidemia (principal); E11.9 Type 2 diabetes mellitus without complications; F41.1 Generalized anxiety disorder | CPT/HCPCS: 80053; 80061; 82043; 83036; 85025 ==

== ENCOUNTER 2022-03-21 07:17 | Day surgery (SDC) | payer MEDICARE, MEDICAID, SELFPAY ==
[2022-03-19 10:35] VITALS: BMI 28.1
[2022-03-21 07:40] VITALS: BP 144/69; PULSE 66; RESP 18; TEMP 36.3; O2SAT 95
--- NOTE | 2022-03-21 07:46 | P.HP_ITS ---
Same Day Surgery H&P Indication for Procedure/HPI DATE OF PROCEDURE: March 21, 2022 CHIEF COMPLAINT/INDICATIONFOR SURGICAL PROCEDURE: Issues with swallowing PREOP DIAGNOSIS: Dysphagia PLANNED PROCEDURE: Operation Date: 03/21/22 08:45 Proposed Procedures p EGD 11422,R13.10(Not Applicable) - Moe Palma MD 12/26/2021 This is a pleasant 72 years old female patient with history of dysphagia to any kind of food or drink also she does have intermittent epigastric pain being on and off nothing seems to make it better or worse.? Patient describes the pain as being sharp.? She had a previous endoscopy years ago does not recall the findings, patient also have history of acid reflux.? I asked the patient about her dentures and she said that they are fitting well and she has no issues with them. 03/21/2022 Patient comes today for diagnostic EGD following barium swallow study that was done on 02/26/2022 and showed normal modified swallowing exam. Recommendations per speech pathology 90 degree hip flexion, 1 teaspoon limit size to that amount. ROS All systems have been reviewed negative except as for the above or per problem list. Medications/Allergies* Allergies/Adverse Reactions Allergy/AdvReac Type Severity Reaction Status Date / Time codeine Allergy Mild Unknown Verified 03/21/22 07:47 Pertinent History/Comorbid Conditions* Medical History (Updated 03/18/22 @ 08:55 by Naima Tamayo DO) Adrenal adenoma Diverticulitis Hepatitis B core antibody positive History of COVID-19 Hyperlipidemia Osteoarthritis Rheumatoid arthritis Follow-up with rheumatology Type 2 diabetes mellitus, without long-term current use of insulin Surgical History (Updated 12/11/21 @ 11:15 by Naima Tamayo DO) History of cataract surgery History of cholecystectomy History of esophagogastroduodenoscopy (EGD) History of hysterectomy History of removal of ovarian cyst History of total hip arthroplasty right Status post colonoscopy (~2019) Family History (Updated 09/20/19 @ 13:36 by Sarah Plummer RN) Rheumatoid arthritis Mother Diabetes Mother Cancer Father Grandmother Denies family history of Anesthesia complication Bleeding disorder Social History Smoking and tobacco status: former smoker Alcohol intake: never History of recent travel: No Pertinent Exam Findings alert, oriented x 3, regular rate & rhythm and procedure specific exam findings (Abdominal exam nontender nondistended soft) Recommendations Surgery/Procedure today (EGD with possible biopsy) Coding Level of Care Code Acute Stripper Preliminary for [facility]
[2022-03-21] MEDS: sodium chloride 0.9% 1,000 ML 30 ML IV (07:47)
[2022-03-21 07:51] LABS: Glucose Point of Care 242 mg/dL (70-110)
--- NOTE | 2022-03-21 07:59 | ANES.PREANE2 ---
Pre-Anesthetic Assessment Height/Weight: Height 1.7 m Weight 81.647 kg Temp Pulse Resp BP Pulse Ox O2 Del Method 97.4 F L 66 18 144/69 95 03/21/22 07:40 03/21/22 07:40 03/21/22 07:40 03/21/22 07:40 03/21/22 07:40 03/21/22 07:40 Preop Diagnosis: Dysphagia Operation Date: 03/21/22 08:45 Proposed Procedures p EGD 39401,R13.10(Not Applicable) - Moe Palma MD Was Beta Riccardo taken within 24 hours: N/A Was Clonidine taken within 24 hours: N/A Last intake: Intake Last Liquid Date 03/20/22 Last Liquid Time 21:00 Last Solid Date 03/20/22 Last Solid Time 21:00 Social No alcohol and No tobacco Exam alert, oriented x 3, clear to auscultation bilaterally and regular rate & rhythm Airway Submandibular: within normal limits Cervical ROM: within normal limits Mallampati: Class II Dentition: full History/ROS No significant history except as noted and No significant complaints Pulmonary None reported CV/HEM None reported None reported Hepatic Hepatitis GI None reported Metabolic Diabetes Mellitus Musc/skel Osteoarthritis/DJD and Rheumatoid Arthritis Neuropsych None reported Anesthetic Plan ASA status: 3 Anesthesia: Anesthesia Evaluation and MAC Risk of > 500 ml blood loss (7ml/kg in children): No Medications/Allergies Home Medications Medication Instructions Recorded Confirmed Last Taken Type blood-glucose meter (Accu-Chek #1 ea 07/28/20 03/18/22 Unknown Rx Catrina Plus Meter) auto titrating CPAP #1 ea 05/10/21 03/18/22 Unknown Rx blood sugar diagnostic (Accu-Chek #100 ea 09/06/21 03/18/22 Unknown Rx Catrina Plus test strips) blood sugar diagnostic (Blood #50 ea 09/07/21 03/18/22 Unknown Rx Glucose Test strips) atorvastatin 20 mg tablet 20 mg PO .AT BEDTIME 90 days #90 03/18/22 03/21/22 03/20/22 Rx tabs buspirone 5 mg tablet 5 mg PO TID PRN anxiety #90 tabs 03/18/22 03/21/22 Unknown Rx canagliflozin 300 mg tablet 300 mg PO DAILY 90 days #90 tabs 03/18/22 03/21/2203/20/22 Rx (Invokana) cetirizine 10 mg tablet (Zyrtec) 10 mg PO DAILY #90 tabs 03/18/22 03/21/22 03/20/22 Rx fluticasone propionate 50 See Rx Instructions .Route 03/18/22 03/21/22 03/19/22 Rx mcg/actuation nasal .COMPLEX #16 grams spray,suspension meloxicam 15 mg tablet 15 mg PO DAILY #90 tabs 03/18/22 03/21/22 03/20/22 Rx pantoprazole 40 mg tablet,delayed 40 mg PO BID #180 tabs 03/18/22 03/21/22 03/20/22 Rx release (Protonix) sertraline 25 mg tablet (Zoloft) 25 mg PO DAILY #30 tabs 03/18/22 03/21/22 Unknown Rx sitagliptin 100 mg tablet (Januvia) 100 mg PO DAILY #90 tabs 03/18/22 03/21/22 03/20/22 Rx trazodone 50 mg tablet 50 mg PO DAILY PRN insomnia #90 03/18/22 03/21/22 03/18/22 Rx tabs glipizide 10 mg tablet 10 mg PO BID #60 tabs 03/19/22 03/21/22 03/20/22 Rx Allergies Allergy/AdvReac Type Severity Reaction Status Date / Time codeine Allergy Mild Unknown Verified 03/21/22 07:47 Current Medications Generic Name Dose Route Start Last Admin Trade Name Freq PRN Reason Stop Dose Admin Sodium Chloride 1,000 mls @ 30 mls/hr 03/21/22 07:30 03/21/22 07:47 Sodium Chloride 0.9% IV 03/22/22 07:29 30 mls/hr .Q24H JEROME Administration PFSH Anesthesia Medical History Adrenal adenoma Diverticulitis Hepatitis B core antibody positive History of COVID-19 Hyperlipidemia Osteoarthritis Rheumatoid arthritis Follow-up with rheumatology Type 2 diabetes mellitus, without long-term current use of insulin Surgical History History of cataract surgery History of cholecystectomy History of esophagogastroduodenoscopy (EGD) History of hysterectomy History of removal of ovarian cyst History of total hip arthroplasty right Status post colonoscopy (~2019) Family History Father Cancer Grandmother Cancer Mother Diabetes Rheumatoid arthritis Denies family history of Anesthesia complication Bleeding disorder Social History Smoking and tobacco status: former smoker Alcohol intake: never History of recent travel: No Data Anesthesia Cardiac Studies: No Data to Display
[2022-03-21 09:01] VITALS: BP 109/64; PULSE 64; RESP 18; TEMP 36.5; O2SAT 93
[2022-03-21 09:06] VITALS: BP 124/71; PULSE 63; RESP 18; O2SAT 96
[2022-03-21 09:16] VITALS: BP 135/72; PULSE 65; RESP 18; O2SAT 97
--- NOTE | 2022-03-21 15:19 | ANE.PACU2 ---
Inpatient post-anesthesia follow up: Airway intact: Yes Vital signs: Temperature 97.7 F Pulse Rate 65 Respiratory Rate 18 Blood Pressure 135/72 Pulse Oximetry 97 Oxygen Delivery Me thod Room Air Oxygen Flow Rate Fraction of Inspir ed Oxygen Hydration adequate: Yes Nausea and vomiting: No Pain level: 1 Mental status: Baseline
== END 2022-03-21 09:35 | disposition home or self-care (01) ==
PROVIDERS: PCP Family Medicine; Visit Provider Surgery
PROC: 0DJ08ZZ Inspection of Upper Intestinal Tract, Via Natural or Artificial Opening Endoscopic (ICD-10-PCS; CPT 43235; principal; 2022-03-21 08:45)
DX: R13.10 Dysphagia, unspecified (principal); Z86.16 Personal history of COVID-19; E78.5 Hyperlipidemia, unspecified; M19.90 Unspecified osteoarthritis, unspecified site; E11.9 Type 2 diabetes mellitus without complications; Z87.891 Personal history of nicotine dependence; M06.9 Rheumatoid arthritis, unspecified
CPT/HCPCS: 36416; 43239; 82962; 88305; 88342; J1100; J1200; J2704; J7030

== ENCOUNTER → 2022-04-10 11:09 | Outpatient (BNVA) | payer MEDICARE, MEDICAID, SELFPAY | PROVIDERS: PCP Family Medicine; Visit Provider Surgery | DX: Z09 Encounter for follow-up examination after completed treatment for conditions other than malignant neoplasm (principal); R10.9 Unspecified abdominal pain; K29.90 Gastroduodenitis, unspecified, without bleeding; I85.00 Esophageal varices without bleeding | CPT/HCPCS: 99212 ==

== ENCOUNTER 2022-04-15 12:01 | Outpatient (CLI) | payer MEDICARE, MEDICAID, SELFPAY ==
[2022-04-15 12:53] LABS: Immunoglobulin IGG 742 mg/dL (700-1600); Immunoglobulin IGM 75 mg/dL (40-230)
== END 2022-04-15 12:02 | disposition home or self-care (01) ==
LOC: LAB 12:04
PROVIDERS: PCP Family Medicine; Visit Provider Surgery
DX: Z01.89 Encounter for other specified special examinations (principal)
CPT/HCPCS: 36415; 82784

== ENCOUNTER → 2022-04-24 15:35 | Outpatient (BNVA) | payer MEDICARE, MEDICAID, SELFPAY | PROVIDERS: PCP Family Medicine; Visit Provider Surgery | DX: K29.90 Gastroduodenitis, unspecified, without bleeding (principal) | CPT/HCPCS: 99213 ==

== ENCOUNTER → 2022-04-26 11:32 | Outpatient (BNVA) | payer MEDICARE, MEDICAID, SELFPAY | PROVIDERS: PCP Family Medicine; Visit Provider Family Medicine | DX: B37.31 Acute candidiasis of vulva and vagina (principal); R30.0 Dysuria | CPT/HCPCS: 81000 ==

== ENCOUNTER 2022-05-27 11:59 | Outpatient (CLI) | payer MEDICARE, MEDICAID, SELFPAY ==
--- NOTE | 2022-05-27 12:15 | US_ITS ---
WS: [id number] RIGHT UPPER QUADRANT ULTRASOUND HISTORY: esophageal varices COMPARISON: None available. Liver: 17.6 cm in length. Normal size liver. No bile duct dilatation or mass. Portal Vein: Normal hepatopetal flow with monophasic waveform. Gallbladder: Prior cholecystectomy. CBD: 0.8 cm Pancreas: Normal size and echogenicity. Right kidney: 10.9 cm in length. Normal size and echogenicity. No hydronephrosis or mass. Aorta and IVC: Unremarkable abdominal aorta and IVC. No ascites. US/US liver [id number] IMPRESSION: 1. Prior cholecystectomy. 2. Otherwise negative.
== END 2022-05-27 12:00 | disposition home or self-care (01) ==
PROVIDERS: PCP Family Medicine; Visit Provider Family Medicine
DX: I85.00 Esophageal varices without bleeding (principal); Z90.49 Acquired absence of other specified parts of digestive tract
CPT/HCPCS: 76705

== ENCOUNTER 2022-07-27 01:05 | Emergency (ER) | payer MEDICARE, MEDICAID, SELFPAY ==
[2022-07-27 01:18] VITALS: BP 151/79; PULSE 67; RESP 18; TEMP 36.6; O2SAT 95; BMI 27.3
--- NOTE | 2022-07-27 02:13 | ED_ITS ---
Documented by User: ADRIANA Berkowitz 07/27/22 02:57 HPI - Recheck/Abnormal Lab/Rx General: Chief Complaint: Recheck/Abnormal Lab/Rx Stated Complaint: High bs Time Seen by Provider: 07/27/22 02:13 History of Present Illness: 72-year-old female comes in today for complaints of elevated blood sugar x3 days. Patient's daughter was concerned due to mom's blood sugar persisting to be elevated. Patient reports no vomiting, fever, diarrhea. Patient does report a frontal headache and some nausea. Patient has had an increase in urination. Patient takes several medications for diabetes, cholesterol, seasonal allergies, arthritis and GERD. Review of the record patient does have a history of gastritis, esophageal varices, anxiety disorder, JONNA, GERD, hyperlipidemia, hypertension, type 2 diabetes, osteoarthritis, and rheumatoid arthritis. Patient appears nontoxic. Patient appears in no pain. Review of Systems General: Reports: 10 or more systems reviewed and unremarkable except in HPI and below Const: Denies: fever(s) ENMT: Denies: throat pain Card: Denies: chest pain Resp: Denies: dyspnea GI: Denies: nausea or vomiting : Reports: urinary frequency Skin/Breast: Denies: rash Neuro: Reports: headache(s) PFSH ED PFSH: Medical History Adrenal adenoma Diverticulitis Hepatitis B core antibody positive History of COVID-19 Hyperlipidemia Osteoarthritis Rheumatoid arthritis Follow-up with rheumatology Type 2 diabetes mellitus, without long-term current use of insulin Surgical History History of cataract surgery History of cholecystectomy History of esophagogastroduodenoscopy (EGD) History of hysterectomy History of removal of ovarian cyst History of total hip arthroplasty right Status post colonoscopy (~2019) Family History Father Cancer Grandmother Cancer Mother Diabetes Rheumatoid arthritis Denies family history of Anesthesia complication Bleeding disorder Social History Smoking and tobacco status: former smoker Alcohol intake: never Physical Exam Const: COMMON NORMALS: alert HENMT: COMMON NORMALS: normocephalic HEAD & SCALP: normocephalic MOUTH: Normal oral and palatal mucosa present Neck/C-Spine: COMMON NORMALS: full ROM Resp: COMMON NORMALS: normal respiratory effort and clear to auscultation bilaterally AUSCULTATION: clear to auscultation bilaterally Cardio: COMMON NORMALS: regular rate and regular rhythm RATE: regular rate RHYTHM: regular rhythm GI: COMMON NORMALS: Soft to palpation and non-tender PALPATION: Yes Soft to palpation : COMMON NORMALS: Yes no CVA tenderness BLADDER/KIDNEY EXAM: Yes no CVA tenderness Back/Pelvis: COMMON NORMALS: no CVA tenderness Extremity: COMMON NORMALS: normal to inspection Neuro: SENSORIUM/ORIENTATION: Yes alert Skin: COMMON NORMALS: turgor normal GENERAL SKIN EXAM: turgor normal Course Vital Signs: Vital signs: Vital Signs Temperature 98 F 07/27/22 01:18 Pulse Rate 57 L 07/27/22 03:26 Respiratory Rate 16 07/27/22 03:26 Blood Pressure 152/50 07/27/22 03:26 Pulse Oximetry 95 07/27/22 03:26 MDM - Recheck/Abnormal Lab/Rx Medical Decision Making 72-year-old female comes in today for complaints of elevated blood sugar above 300 for last 3 days. Patient appears nontoxic. Lungs are clear to auscultation. Abdomen soft nontender. No edema is noted in the extremities. Differential diagnosis includes but not limited to uncontrolled diabetes mellitus, hyperglycemia and type 2 diabetes, dehydration, DKA. Lab Data 07/27/22 02:18 07/27/22 02:18 Laboratory Results WBC 7.7 10^3/uL (4.0-10.0) 07/27/22 02:18 RBC 5.37 10^6/uL (4.1-5.3) H 07/27/22 02:18 Hgb 15.9 g/dL (11.5-15.3) H 07/27/22 02:18 Hct 49.0 % (37.0-47.0) H 07/27/22 02:18 MCV 91.2 fl (81-99) 07/27/22 02:18 MCH 29.6 pg (28.0-34.0) 07/27/22 02:18 MCHC 32.4 g/dL (30.0-36.0) 07/27/22 02:18 RDW 12.8 % (12.1-15.1) 07/27/22 02:18 Plt Count 183 10^3/cmm (130-400) 07/27/22 02:18 MPV 10.4 fL (7.4-10.4) 07/27/22 02:18 Neut % (Auto) 50.0 % 07/27/22 02:18 Lymph % (Auto) 36.4 % 07/27/22 02:18 Gosper % (Auto) 9.1 % 07/27/22 02:18 Eos % (Auto) 2.6 % 07/27/22 02:18 Baso % (Auto) 1.6 % 07/27/22 02:18 Neut # (Auto) 3.88 10^3/uL (1.8-7.7) 07/27/22 02:18 Lymph # (Auto) 2.8 10^3/uL (0.8-4.8) 07/27/22 02:18 Gosper # (Auto) 0.7 10^3/uL (0.2-0.9) 07/27/22 02:18 Eos # (Auto) 0.2 10^3/uL (0.0-0.8) 07/27/22 02:18 Baso # (Auto) 0.1 10^3/uL (0.0-0.1) 07/27/22 02:18 Nucleated RBC % (auto) 0 % 07/27/22 02:18 Nucleated RBCs # 0.0 /100WBC 07/27/22 02:18 Sodium 137 mmol/L (136-145) 07/27/22 02:18 Potassium 4.1 mmol/L (3.5-5.1) 07/27/22 02:18 Chloride 100 mmol/L (98-107) 07/27/22 02:18 Carbon Dioxide 26 mmol/L (22-29) 07/27/22 02:18 Anion Gap 15.1 (5-19) 07/27/22 02:18 BUN 25 mg/dL (8-23) H 07/27/22 02:18 Creatinine 0.6 mg/dL (0.5-0.9) 07/27/22 02:18 GFR Calculation Not Reportable 07/27/22 02:18 Glucose 263 mg/dL (65-115) H 07/27/22 02:18 Calculated Osmolality 298 mOsm/kg (285-295) H 07/27/22 02:18 Calcium 9.4 mg/dL (8.5-10.5) 07/27/22 02:18 Total Bilirubin 0.2 mg/dL (0.15-1.2) 07/27/22 02:18 AST 14 U/L (0-32) 07/27/22 02:18 ALT 24 U/L (0-33) 07/27/22 02:18 Alkaline Phosphatase 73 U/L (35-105) 07/27/22 02:18 Troponin T Gen 5 ng/L 10 ng/L (0-10) 07/27/22 02:18 Total Protein 6.8 g/dL (6.6-8.7) 07/27/22 02:18 Albumin 3.9 g/dL (3.5-5.2) 07/27/22 02:18 Globulin 2.9 g/dL (1.3-4.6) 07/27/22 02:18 Lipase 62 U/L (13-60) H 07/27/22 02:18 Urine Color Yellow (Yellow) 07/27/22 03:09 Urine Appearance Clear (CLEAR) 07/27/22 03:09 Urine pH 5 (5-7) 07/27/22 03:09 Ur Specific Rice 1.010 (1.005-1.030) 07/27/22 03:09 Urine Protein Neg (Negative) 07/27/22 03:09 Urine Glucose (UA) 4+ (Normal) H 07/27/22 03:09 Urine Ketones Negative (Negative) 07/27/22 03:09 Urine Blood Neg (Negative) 07/27/22 03:09 Urine Nitrate Negative (Negative) 07/27/22 03:09 Urine Bilirubin Neg (Negative) 07/27/22 03:09 Urine Urobilinogen Norm mg/dL (Negative) 07/27/22 03:09 Ur Leukocyte Esterase Negative (Negative) 07/27/22 03:09 Discharge Plan Discharge Patient Disposition: Home Clinical Impression: Diabetes mellitus type 2 in nonobese, Hyperglycemia Condition: Stable Prescriptions: New insulin lispro 100 unit/mL insulin pen See Rx Instructions .ROUTE .COMPLEX Qty: 15 0RF Rx Instructions: Take according to sliding scale No Action trazodone 50 mg tablet 50 mg PO DAILY PRN (Reason: insomnia) Qty: 90 1RF (DME) auto titrating CPAP See Rx Instructions .Route .MEDSUPPLY Qty: 1 0RF Rx Instructions: As directed atorvastatin 20 mg tablet 20 mg PO .AT BEDTIME 90 Days Qty: 90 1RF meloxicam 15 mg tablet 15 mg PO DAILY Qty: 90 1RF Hold Instructions: Resume on 03/27/22. pantoprazole [Protonix] 40 mg tablet,delayed release (DR/EC) 40 mg PO BID Qty: 180 1RF prednisone 20 mg tablet 20 mg PO DAILY 3 Days Qty: 6 0RF cyclobenzaprine 7.5 mg tablet 7.5 mg PO TID 3 Days Qty: 9 0RF buspirone 5 mg tablet 5 mg PO TID PRN (Reason: anxiety) Qty: 90 0RF fluconazole [Diflucan] 150 mg tablet 150 mg PO Q3D Qty: 2 0RF Rx Instructions: may repeat second dose 72 hrs after first dose if symptoms persist (DME) blood-glucose meter [Accu-Chek Catrina Plus Meter] [facility] See Rx Instructions .ROUTE .MEDSUPPLY Qty: 1 0RF Rx Instructions: As directed (DME) Accu-Chek Catrina Plus test strp Strip See Rx Instructions .ROUTE .MEDSUPPLY Qty: 100 5RF Rx Instructions: TWICE DAILY AND PRN (DME) Blood Glucose Test Strip See Rx Instructions .ROUTE .MEDSUPPLY Qty: 50 5RF Rx Instructions: Use BID and PRN with Easy Touch Glucose Meter fluticasone propionate 50 mcg/actuation spray,suspension See Rx Instructions .ROUTE .COMPLEX Qty: 16 5RF Dose Instruction: ADMINISTER 2 SPRAYS INTO EACH NOSTRIL Rx Instructions: ADMINISTER 2 SPRAYS INTO EACH NOSTRIL Invokana 300 mg tablet 300 mg PO DAILY 90 Days Qty: 90 1RF cetirizine [Zyrtec] 10 mg tablet 10 mg PO DAILY Qty: 90 1RF Januvia 100 mg tablet 100 mg PO DAILY Qty: 90 1RF clarithromycin 500 mg tablet 500 mg PO TID 14 Days Qty: 42 0RF sertraline [Zoloft] 25 mg tablet 25 mg PO DAILY Qty: 90 0RF glipizide 10 mg tablet 10 mg PO BID Qty: 60 0RF Discharge Orders: Discharge ED (Routine); Ordered 07/27/22 Ordered By: Luis Jordan Referrals: Naima Tamayo DO [Primary Care Provider] - 4-7 days Patient Instructions: Insulin Lispro (By injection) (HumaLOG, HumaLOG Pen, Lispro-PFC,..., Insulin Pens (ED), Diabetic Hyperglycemia (ED) Activity Restrictions/Additional Instructions: Take your blood sugar as directed by the sliding scale. Use the sliding scale to dose your insulin appropriately. Continue her other medications for now. Follow up with your doctor next week. Return for any new concerning symptoms. Coding Level of Care Code ED Juvenile Corrections Officer for Chg Fwd Documented by User: Luis Jordan DO 07/27/22 05:14 HPI - Recheck/Abnormal Lab/Rx General: Chief Complaint: Recheck/Abnormal Lab/Rx Stated Complaint: High bs Time Seen by Provider: 07/27/22 02:13 PFSH ED PFSH: Medical History Adrenal adenoma Diverticulitis Hepatitis B core antibody positive History of COVID-19 Hyperlipidemia Osteoarthritis Rheumatoid arthritis Follow-up with rheumatology Type 2 diabetes mellitus, without long-term current use of insulin Surgical History History of cataract surgery History of cholecystectomy History of esophagogastroduodenoscopy (EGD) History of hysterectomy History of removal of ovarian cyst History of total hip arthroplasty right Status post colonoscopy (~2019) Family History Father Cancer Grandmother Cancer Mother Diabetes Rheumatoid arthritis Denies family history of Anesthesia complication Bleeding disorder Social History Smoking and tobacco status: former smoker Alcohol intake: never Course Vital Signs: Vital signs: Vital Signs Temperature 98 F 07/27/22 01:18 Pulse Rate 57 L 07/27/22 03:26 Respiratory Rate 16 07/27/22 03:26 Blood Pressure 152/50 07/27/22 03:26 Pulse Oximetry 95 07/27/22 03:26 MDM - Recheck/Abnormal Lab/Rx Medical Decision Making 72-year-old female comes in today for complaints of elevated blood sugar above 300 for last 3 days. Patient appears nontoxic. Lungs are clear to auscultation. Abdomen soft nontender. No edema is noted in the extremities. Differential diagnosis includes but not limited to uncontrolled diabetes mellitus, hyperglycemia and type 2 diabetes, dehydration, DKA. This patient was originally seen by ADRIANA Grady.? I agree with his history, evaluation, and treatment. Patient Is 15. Hyperglycemia is mild, 263. Other laboratory not remarkable. She is essentially asymptomatic now. Concerning that the patient is maximized on on insulin therapy, and may need to be on insulin. She has been talking about this with her PCP discussed the option of going home on a sliding scale of short-acting insulin with instructions for such, and using this to determine potential need for long-acting insulin. She likes this idea. She will follow up with her PCP next week Lab Data 07/27/22 02:18 07/27/22 02:18 Laboratory Results WBC 7.7 10^3/uL (4.0-10.0) 07/27/22 02:18 RBC 5.37 10^6/uL (4.1-5.3) H 07/27/22 02:18 Hgb 15.9 g/dL (11.5-15.3) H 07/27/22 02:18 Hct 49.0 % (37.0-47.0) H 07/27/22 02:18 MCV 91.2 fl (81-99) 07/27/22 02:18 MCH 29.6 pg (28.0-34.0) 07/27/22 02:18 MCHC 32.4 g/dL (30.0-36.0) 07/27/22 02:18 RDW 12.8 % (12.1-15.1) 07/27/22 02:18 Plt Count 183 10^3/cmm (130-400) 07/27/22 02:18 MPV 10.4 fL (7.4-10.4) 07/27/22 02:18 Neut % (Auto) 50.0 % 07/27/22 02:18 Lymph % (Auto) 36.4 % 07/27/22 02:18 Gosper % (Auto) 9.1 % 07/27/22 02:18 Eos % (Auto) 2.6 % 07/27/22 02:18 Baso % (Auto) 1.6 % 07/27/22 02:18 Neut # (Auto) 3.88 10^3/uL (1.8-7.7) 07/27/22 02:18 Lymph # (Auto) 2.8 10^3/uL (0.8-4.8) 07/27/22 02:18 Gosper # (Auto) 0.7 10^3/uL (0.2-0.9) 07/27/22 02:18 Eos # (Auto) 0.2 10^3/uL (0.0-0.8) 07/27/22 02:18 Baso # (Auto) 0.1 10^3/uL (0.0-0.1) 07/27/22 02:18 Nucleated RBC % (auto) 0 % 07/27/22 02:18 Nucleated RBCs # 0.0 /100WBC 07/27/22 02:18 Sodium 137 mmol/L (136-145) 07/27/22 02:18 Potassium 4.1 mmol/L (3.5-5.1) 07/27/22 02:18 Chloride 100 mmol/L (98-107) 07/27/22 02:18 Carbon Dioxide 26 mmol/L (22-29) 07/27/22 02:18 Anion Gap 15.1 (5-19) 07/27/22 02:18 BUN 25 mg/dL (8-23) H 07/27/22 02:18 Creatinine 0.6 mg/dL (0.5-0.9) 07/27/22 02:18 GFR Calculation Not Reportable 07/27/22 02:18 Glucose 263 mg/dL (65-115) H 07/27/22 02:18 Calculated Osmolality 298 mOsm/kg (285-295) H 07/27/22 02:18 Calcium 9.4 mg/dL (8.5-10.5) 07/27/22 02:18 Total Bilirubin 0.2 mg/dL (0.15-1.2) 07/27/22 02:18 AST 14 U/L (0-32) 07/27/22 02:18 ALT 24 U/L (0-33) 07/27/22 02:18 Alkaline Phosphatase 73 U/L (35-105) 07/27/22 02:18 Troponin T Gen 5 ng/L 10 ng/L (0-10) 07/27/22 02:18 Total Protein 6.8 g/dL (6.6-8.7) 07/27/22 02:18 Albumin 3.9 g/dL (3.5-5.2) 07/27/22 02:18 Globulin 2.9 g/dL (1.3-4.6) 07/27/22 02:18 Lipase 62 U/L (13-60) H 07/27/22 02:18 Urine Color Yellow (Yellow) 07/27/22 03:09 Urine Appearance Clear (CLEAR) 07/27/22 03:09 Urine pH 5 (5-7) 07/27/22 03:09 Ur Specific Rice 1.010 (1.005-1.030) 07/27/22 03:09 Urine Protein Neg (Negative) 07/27/22 03:09 Urine Glucose (UA) 4+ (Normal) H 07/27/22 03:09 Urine Ketones Negative (Negative) 07/27/22 03:09 Urine Blood Neg (Negative) 07/27/22 03:09 Urine Nitrate Negative (Negative) 07/27/22 03:09 Urine Bilirubin Neg (Negative) 07/27/22 03:09 Urine Urobilinogen Norm mg/dL (Negative) 07/27/22 03:09 Ur Leukocyte Esterase Negative (Negative) 07/27/22 03:09 Discharge Plan Discharge Patient Disposition: Home Clinical Impression: Diabetes mellitus type 2 in nonobese, Hyperglycemia Condition: Stable Prescriptions: New insulin lispro 100 unit/mL insulin pen See Rx Instructions .ROUTE .COMPLEX Qty: 15 0RF Rx Instructions: Take according to sliding scale No Action trazodone 50 mg tablet 50 mg PO DAILY PRN (Reason: insomnia) Qty: 90 1RF (DME) auto titrating CPAP See Rx Instructions .Route .MEDSUPPLY Qty: 1 0RF Rx Instructions: As directed atorvastatin 20 mg tablet 20 mg PO .AT BEDTIME 90 Days Qty: 90 1RF meloxicam 15 mg tablet 15 mg PO DAILY Qty: 90 1RF Hold Instructions: Resume on 03/27/22. pantoprazole [Protonix] 40 mg tablet,delayed release (DR/EC) 40 mg PO BID Qty: 180 1RF prednisone 20 mg tablet 20 mg PO DAILY 3 Days Qty: 6 0RF cyclobenzaprine 7.5 mg tablet 7.5 mg PO TID 3 Days Qty: 9 0RF buspirone 5 mg tablet 5 mg PO TID PRN (Reason: anxiety) Qty: 90 0RF fluconazole [Diflucan] 150 mg tablet 150 mg PO Q3D Qty: 2 0RF Rx Instructions: may repeat second dose 72 hrs after first dose if symptoms persist (DME) blood-glucose meter [Accu-Chek Catrina Plus Meter] Misc See Rx Instructions .ROUTE .MEDSUPPLY Qty: 1 0RF Rx Instructions: As directed (DME) Accu-Chek Catrina Plus test strp Strip See Rx Instructions .ROUTE .MEDSUPPLY Qty: 100 5RF Rx Instructions: TWICE DAILY AND PRN (DME) Blood Glucose Test Strip See Rx Instructions .ROUTE .MEDSUPPLY Qty: 50 5RF Rx Instructions: Use BID and PRN with Easy Touch Glucose Meter fluticasone propionate 50 mcg/actuation spray,suspension See Rx Instructions .ROUTE .COMPLEX Qty: 16 5RF Dose Instruction: ADMINISTER 2 SPRAYS INTO EACH NOSTRIL Rx Instructions: ADMINISTER 2 SPRAYS INTO EACH NOSTRIL Invokana 300 mg tablet 300 mg PO DAILY 90 Days Qty: 90 1RF cetirizine [Zyrtec] 10 mg tablet 10 mg PO DAILY Qty: 90 1RF Januvia 100 mg tablet 100 mg PO DAILY Qty: 90 1RF clarithromycin 500 mg tablet 500 mg PO TID 14 Days Qty: 42 0RF sertraline [Zoloft] 25 mg tablet 25 mg PO DAILY Qty: 90 0RF glipizide 10 mg tablet 10 mg PO BID Qty: 60 0RF Discharge Orders: Discharge ED (Routine); Ordered 07/27/22 Ordered By: Luis Jordan Referrals: Naima Tamayo DO [Primary Care Provider] - 4-7 days Patient Instructions: Insulin Lispro (By injection) (HumaLOG, HumaLOG Pen, Lispro-PFC,..., Insulin Pens (ED), Diabetic Hyperglycemia (ED) Activity Restrictions/Additional Instructions: Take your blood sugar as directed by the sliding scale. Use the sliding scale to dose your insulin appropriately. Continue her other medications for now. Follow up with your doctor next week. Return for any new concerning symptoms. Coding Level of Care Code ED Juvenile Corrections Officer for Gregory Pereira
--- NOTE | 2022-07-27 02:17 | ECG_ITS ---
[facility] Test Date: 2022-07-27 Pat Name: Monica Wu Department: Room: Gender: Female Production Line: : 1950 Requested By: Saúl Ramírez Order Number: [id number] Reading MD: PEARL ZIEGLER Measurements Intervals [place] Rate: 55 P: -2 NE: 128 QRS: 7 QRSD: 97 T: -7 QT: 414 QTc: 399 Interpretive Statements SINUS BRADYCARDIA WITH OCCASIONAL SUPRAVENTRICULAR PREMATURE COMPLEXES NONSPECIFIC T-WAVE ABNORMALITY Compared to ECG 03/23/2021 03:09:15 T-wave abnormality now present Sinus rhythm no longer present Electronically Signed On 07-27-2022 23:36:46 CDT by PEARL ZIEGLER [id number]
[2022-07-27 02:43] LABS: Basophils # 0.1 10^3/uL (0.0-0.1); Basophils % 1.6 %; Eosinophils # 0.2 10^3/uL (0.0-0.8); Eosinophils % 2.6 %; Hemoglobin 15.9 g/dL (11.5-15.3); Lymphocytes # 2.8 10^3/uL (0.8-4.8); Lymphocytes % 36.4 %; Mean Corpuscular HGB Conc 32.4 g/dL (30.0-36.0); Mean Corpuscular Hemoglobin 29.6 pg (28.0-34.0); Mean Corpuscular Volume 91.2 fl (81-99); Mean Platelet Volume 10.4 fL (7.4-10.4); Monocytes # 0.7 10^3/uL (0.2-0.9); Monocytes % 9.1 %; Neutrophils # 3.88 10^3/uL (1.8-7.7); Nucleated Red Blood Cells % 0 %; Platelet Count 183 10^3/cmm (130-400); Red Blood Count 5.37 10^6/uL (4.1-5.3); Red Cell Distribution Width 12.8 % (12.1-15.1); White Blood Count 7.7 10^3/uL (4.0-10.0)
[2022-07-27 03:06] LABS: Alanine Aminotransferase 24 U/L (0-33); Albumin Level 3.9 g/dL (3.5-5.2); Alkaline Phosphatase 73 U/L (35-105); Anion Gap 15.1 (5-19); Aspartate Amino Transferase 14 U/L (0-32); Blood Urea Nitrogen 25 mg/dL (8-23); Calcium 9.4 mg/dL (8.5-10.5); Carbon Dioxide 26 mmol/L (22-29); Chloride 100 mmol/L (98-107); Creatinine Clr Calc Pharmacy 67.9362; Globulin 2.9 g/dL (1.3-4.6); Glucose 263 mg/dL (65-115); Lipase 62 U/L (13-60); Osmolality Calculated 298 mOsm/kg (285-295); Potassium 4.1 mmol/L (3.5-5.1); Sodium 137 mmol/L (136-145); Total Bilirubin 0.2 mg/dL (0.15-1.2); Total Protein 6.8 g/dL (6.6-8.7); Troponin T (5th) Once 10 ng/L (0-10)
[2022-07-27 03:13] LABS: Add Urine Microscopic? NO; Charge for UA Resulting for Rev
[2022-07-27 03:15] LABS: Bilirubin Urine Neg (Negative); Blood Urine Neg (Negative); Glucose Urine UA 4+ (Normal); Ketones Urine Negative (Negative); Leukocyte Esterase Urine Negative (Negative); Nitrate Urine Negative (Negative); Protein Urine Neg (Negative); Urine Appearance Clear (CLEAR); Urine Color Yellow (Yellow); Urobilinogen Urine Norm (Negative); pH Urine 5 (5-7)
[2022-07-27 03:26] VITALS: BP 152/50; PULSE 57; RESP 16; O2SAT 95
== END 2022-07-27 04:01 | disposition home or self-care (01) ==
PROVIDERS: Emergency Provider Nurse Practitioner Family; PCP Family Medicine
DX: E11.65 Type 2 diabetes mellitus with hyperglycemia (principal); E78.5 Hyperlipidemia, unspecified; Z79.84 Long term (current) use of oral hypoglycemic drugs; Z87.891 Personal history of nicotine dependence
CPT/HCPCS: 80053; 81003; 83690; 84484; 85025; 93005; 99284

== ENCOUNTER → 2022-08-01 16:32 | Outpatient (BNVA) | payer MEDICARE, MEDICAID, SELFPAY | PROVIDERS: PCP Family Medicine; Visit Provider Family Medicine | DX: E11.9 Type 2 diabetes mellitus without complications (principal) | CPT/HCPCS: 80048; 83036 ==

== ENCOUNTER → 2022-09-03 11:39 | Outpatient (BNVA) | payer MEDICARE, MEDICAID, SELFPAY | PROVIDERS: PCP Family Medicine; Visit Provider Family Medicine | DX: E87.5 Hyperkalemia (principal) | CPT/HCPCS: 80048 ==

== ENCOUNTER → 2022-10-15 10:11 | Outpatient (BNVA) | payer MEDICARE, MEDICAID, SELFPAY | PROVIDERS: PCP Family Medicine; Visit Provider Surgery | DX: K21.00 Gastro-esophageal reflux disease with esophagitis, without bleeding (principal); R13.10 Dysphagia, unspecified; Z80.0 Family history of malignant neoplasm of digestive organs | CPT/HCPCS: 99213 ==

== ENCOUNTER 2022-10-23 07:09 | Outpatient (CLI) | payer MEDICARE, MEDICAID, SELFPAY ==
--- NOTE | 2022-10-23 07:15 | USCV_ITS ---
Monica Wu Age: 72 Gender: F : 1950 Exam Date: 10/23/2022 07:48 Ordering Phys: Naima Tamayo DO Technologist: EDVIN Exam Location: [facility] [place] Indication: LED EDEMA, SOB BP: 129 / 81 HR: 59 Rhythm: Sinus Technical Quality: Adequate MEASUREMENTS (Male / Female) Normal Values 2D ECHO LVOT Diameter 2.0 cm LV Ejection Fraction MOD 2C 65.8 % LV Ejection Fraction 2C AL 69.7 % LA Diameter 3.6 cm LA Width 3.1 cm LA Height 5.3 cm RA Width 2.7 cm RA Height 4.6 cm Aorta at Sinotubular Diameter 2.2 cm IVC Diameter 1.6 cm M-MODE Aortic Annulus Diameter 2.9 cm LA Ao Ratio MM 1.1 MV E Point Septal Separation 0.9 cm DOPPLER AV Peak Velocity 131.0 cm/s LVOT Peak Velocity 134.0 cm/s AV Area Cont Eq vti 3.4 cm squared AV Area Cont Eq pk 3.2 cm squared MV Peak Velocity 103.0 cm/s MV Area PHT 4.1 cm squared Mitral E to A Ratio 0.8 MV E' Velocity 50.0 cm/s Mitral E to MV E' Ratio 10.5 Mitral E to LV E' Lateral Ratio 8.6 Mitral E to LV E' Septal Ratio 13.8 TR Peak Velocity 165.9 cm/s TR Peak Gradient 11.0 mmHg TR Mean Velocity 142.7 cm/s TR Mean Gradient 8.3 mmHg TR Velocity Time Integral 48.2 cm TV Peak E Velocity 49.0 cm/s Right Atrial Pressure 3.0 mmHg Pulmonary Artery Systolic Pressu 14.0 mmHg PV Peak Velocity 101.0 cm/s RV Acceleration Time 0.1 s RV Ejection Time 0.3 s RV AcT/ET 0.4 FINDINGS Left Ventricle Normal left ventricular size, systolic function and wall thickness, with no regional wall motion abnormalities. Left ventricular ejection fraction is estimated at 65 %. Normal diastolic function. Right Ventricle Normal right ventricular size and systolic function. Normal right ventricular systolic pressure. Right Atrium Normal right atrial size. Left Atrium Normal left atrial size. Mitral Valve Structurally normal mitral valve. No mitral valve stenosis. Trace mitral valve regurgitation. Aortic Valve Structurally normal trileaflet aortic valve. No aortic valve stenosis. No aortic valve regurgitation. Tricuspid Valve Structurally normal tricuspid valve. No tricuspid valve stenosis. Trace tricuspid valve regurgitation. Pulmonic Valve Pulmonic valve not well visualized. No pulmonary valve stenosis. No pulmonary valve regurgitation. Pericardium No pericardial effusion. Aorta Normal size aortic root and proximal ascending aorta. IVC Normal IVC dimension with >50% respiratory change of the inferior vena cava. CONCLUSIONS 1. Normal left ventricular size, systolic function and wall thickness, with no regional wall motion abnormalities. Left ventricular ejection fraction is estimated at 65 %. Normal diastolic function. 2. Normal right ventricular size and systolic function. 3. When compared to study dated 05/28/2017, there may not have been any significant change. Krista Hernández MD (Electronically Signed) Final Date: 25 October 2022 11:57 S
== END 2022-10-23 07:10 | disposition home or self-care (01) ==
LOC: RAD 07:11
PROVIDERS: PCP Family Medicine; Visit Provider Family Medicine
DX: R60.0 Localized edema (principal)
CPT/HCPCS: 93306

== ENCOUNTER 2022-10-30 09:35 | Day surgery (SDC) | payer MEDICARE, MEDICAID, SELFPAY ==
[2022-10-29 09:11] VITALS: BMI 27.8
[2022-10-30 09:48] VITALS: BP 140/75; PULSE 67; RESP 18; TEMP 36.8; O2SAT 95
[2022-10-30] MEDS: sodium chloride 0.9% 1,000 ML 30 ML IV (09:54)
[2022-10-30 09:58] LABS: Glucose Point of Care 176 mg/dL (70-110)
--- NOTE | 2022-10-30 10:15 | ANES.PREANE2 ---
Pre-Anesthetic Assessment Height/Weight: Height 1.7 m Weight 80.739 kg Temp Pulse Resp BP Pulse Ox O2 Del Method 98.3 F 67 18 140/75 95 Room Air 10/30/22 09:48 10/30/22 09:48 10/30/22 09:48 10/30/22 09:48 10/30/22 09:48 10/30/22 09:48 Preop Diagnosis: dysphagia Operation Date: 10/30/22 10:30 Proposed Procedures p [id number] egd w/balloon dialation, K21.9, R13.10(Not Applicable) - Erick Leung DO Familial anesthetic complications: none Was Beta Riccardo taken within 24 hours: N/A Was Clonidine taken within 24 hours: N/A Last intake: Intake Last Liquid Date 10/29/22 Last Liquid Time 23:00 Last Solid Date 10/29/22 Last Solid Time 20:00 Last Intake: 23:00 Social No alcohol and No tobacco Exam alert, oriented x 3, clear to auscultation bilaterally and regular rate & rhythm Airway Submandibular: within normal limits Cervical ROM: within normal limits Mallampati: Class II Dentition: false (upper) Pulmonary None reported CV/HEM None reported None reported Hepatic None reported GI Gastroesophageal Reflux Disease Metabolic Diabetes Mellitus (avg 140's) Musc/skel Lower Back Pain, Osteoarthritis/DJD and Rheumatoid Arthritis Neuropsych Anxiety and Depression Anesthetic Plan ASA status: 2 Anesthesia: MAC Risk of > 500 ml blood loss (7ml/kg in children): No Medications/Allergies Home Medications Medication Instructions Recorded Confirmed Last Taken Type blood-glucose meter (Accu-Chek #1 ea 07/28/20 10/15/22 10/29/22 Rx Catrina Plus Meter) auto titrating CPAP #1 ea 05/10/21 10/15/22 10/29/22 Rx blood sugar diagnostic (Accu-Chek #100 ea 09/06/21 10/15/22 10/29/22 Rx Catrina Plus test strips) blood sugar diagnostic (Blood #50 ea 09/07/21 10/15/22 10/29/22 Rx Glucose Test strips) atorvastatin 20 mg tablet 20 mg PO .AT BEDTIME 90 days #90 03/18/22 10/29/22 10/29/22 Rx tabs buspirone 5 mg tablet 5 mg PO TID PRN anxiety #90 tabs 03/18/22 10/29/22 10/29/22 Rx pantoprazole 40 mg tablet,delayed 40 mg PO BID #180 tabs 03/18/22 10/29/22 10/29/22 Rx release (Protonix) trazodone 50 mg tablet 50 mg PO DAILY PRN insomnia #90 03/18/22 10/29/22 03/18/22 Rx tabs sertraline 25 mg tablet (Zoloft) 25 mg PO DAILY #90 tabs 05/31/22 10/29/22 Unknown Rx furosemide 20 mg tablet (Lasix) 20 mg PO QAM #30 tabs 09/26/22 10/29/22 10/29/22 Rx insulin glargine 100 unit/mL (3 45 unit (0.45 mL) SUBCUT .qhs 30 09/26/22 10/29/22 10/29/22 Rx mL) subcutaneous pen (Lantus days #15 mL Solostar U-100 Insulin) meloxicam 15 mg tablet 15 mg PO DAILY #90 tabs 09/26/22 10/29/22 10/29/22 Rx canagliflozin 300 mg tablet 300 mg PO DAILY 10/29/22 10/29/22 10/29/22 History (Invokana) cetirizine 10 mg tablet (Zyrtec) 10 mg PO DAILY PRN Allergy Symptoms 10/29/22 10/29/22 10/22/22 History fluticasone propionate 50 2 spray intranasal DAILY PRN 10/29/22 10/29/22 10/29/22 History mcg/actuation nasal Congestion spray,suspension Allergies Allergy/AdvReac Type Severity Reaction Status Date / Time codeine Allergy Mild Unknown Verified 10/30/22 09:46 Current Medications Generic Name Dose Route Start Last Admin Trade Name Freq PRN Reason Stop Dose Admin Sodium Chloride 1,000 mls @ 30 mls/hr 10/30/22 09:45 10/30/22 09:54 Sodium Chloride 0.9% IV 10/31/22 09:44 30 mls/hr .Q24H JEROME Administration PFSH Anesthesia Medical History Adrenal adenoma Diverticulitis Hepatitis B core antibody positive History of COVID-19 Hyperlipidemia Osteoarthritis Rheumatoid arthritis Follow-up with rheumatology Type 2 diabetes mellitus, without long-term current use of insulin Surgical History History of cataract surgery History of cholecystectomy History of colonoscopy History of esophagogastroduodenoscopy (EGD) History of hysterectomy History of removal of ovarian cyst History of total hip arthroplasty right Status post colonoscopy (~2019) Family History Father Cancer Grandmother Cancer Mother Diabetes Rheumatoid arthritis Denies family history of Anesthesia complication Bleeding disorder Social History Smoking and tobacco status: former smoker Alcohol intake: never Substance/Drug Use: never Data Anesthesia Cardiac Studies: Echocardiogram 10/23/22
--- NOTE | 2022-10-30 12:14 | W.PM.OPSUD ---
Surgery/Procedure H&P Update DATE OF PROCEDURE: October 30, 2022 DATE H&P PERFORMED: 10/15/22 H&P UPDATE INFORMATION: I have reviewed H&P completed within last 30 days, I have examined patient prior to procedure and No changes to prior documentation PREOP DIAGNOSIS: dysphagia PLANNED PROCEDURE: Operation Date: 10/30/22 10:30 Proposed Procedures p [id number] egd w/balloon dialation, K21.9, R13.10(Not Applicable) - Erick Leung DO
[2022-10-30 12:35] VITALS: BP 105/61; PULSE 55; RESP 20; TEMP 36.1; O2SAT 97
[2022-10-30 12:44] VITALS: BP 102/64; RESP 18; O2SAT 95
[2022-10-30 12:53] VITALS: BP 116/77; PULSE 60; RESP 16; O2SAT 96
--- NOTE | 2022-10-30 13:58 | ANE.PACU2 ---
Inpatient post-anesthesia follow up: Airway intact: Yes Vital signs: Temperature 97 F Pulse Rate 60 Respiratory Rate 16 Blood Pressure 116/77 Pulse Oximetry 96 Oxygen Delivery Me thod Room Air Oxygen Flow Rate 2 Fraction of Inspir ed Oxygen Hydration adequate: Yes Nausea and vomiting: No Pain level: 2 Mental status: Baseline
== END 2022-10-30 13:15 | disposition home or self-care (01) ==
PROVIDERS: PCP Family Medicine; Visit Provider Surgery
DX: K22.2 Esophageal obstruction (principal); I85.00 Esophageal varices without bleeding; K29.70 Gastritis, unspecified, without bleeding; K31.89 Other diseases of stomach and duodenum; K21.9 Gastro-esophageal reflux disease without esophagitis; E11.9 Type 2 diabetes mellitus without complications; E78.5 Hyperlipidemia, unspecified; M06.9 Rheumatoid arthritis, unspecified; Z79.4 Long term (current) use of insulin; Z87.891 Personal history of nicotine dependence; Z86.16 Personal history of COVID-19; Z80.0 Family history of malignant neoplasm of digestive organs
CPT/HCPCS: 36416; 43239; 43249; 82962; 88305; J2704; J7030

== ENCOUNTER → 2022-11-26 08:37 | Outpatient (BNVA) | payer MEDICARE, MEDICAID, SELFPAY | PROVIDERS: PCP Family Medicine; Visit Provider Family Medicine | DX: E11.9 Type 2 diabetes mellitus without complications (principal); Z79.4 Long term (current) use of insulin | CPT/HCPCS: 80053; 83036 ==

== ENCOUNTER 2023-02-24 09:00 | Outpatient (CLI) | payer MEDICARE, MEDICAID, SELFPAY ==
--- NOTE | 2023-02-24 09:00 | MM_ITS ---
WS: [id number] SCREENING DIGITAL TOMOSYNTHESIS MAMMOGRAM WITH CAD HISTORY: screening COMPARISON: 01/05/2018 Bilateral CC and MLO with tomosynthesis views submitted. Synthetic mammography reviewed. Computer aid ed detection analyzed. Breast composition: The breasts are heterogeneously dense, which may obscure small masses. No suspici ous masses, microcalcifications or architectural distortion. IMPRESSION: MM/[place] [id number] BI-RADS: 1-Negative FOLLOW UP: 1 Year Follow-up
== END 2023-02-24 09:01 | disposition home or self-care (01) ==
LOC: MOBLMAM 09:02
PROVIDERS: PCP Family Medicine; Visit Provider Family Medicine
DX: Z12.31 Encounter for screening mammogram for malignant neoplasm of breast (principal)
CPT/HCPCS: 77063; 77067

== ENCOUNTER → 2023-02-25 08:40 | Outpatient (BNVA) | payer MEDICARE, MEDICAID, SELFPAY | PROVIDERS: PCP Family Medicine; Visit Provider Family Medicine | DX: E11.9 Type 2 diabetes mellitus without complications (principal); Z79.4 Long term (current) use of insulin | CPT/HCPCS: 80053; 80061; 82043; 83036 ==

== ENCOUNTER → 2023-04-26 11:42 | Outpatient (BNVA) | payer MEDICARE, MEDICAID, SELFPAY | PROVIDERS: PCP Family Medicine; Visit Provider Emergency Medicine | DX: R52 Pain, unspecified (principal); J06.9 Acute upper respiratory infection, unspecified | CPT/HCPCS: 87426 ==

== ENCOUNTER → 2023-08-19 09:09 | Outpatient (BNVA) | payer MEDICARE, MEDICAID, SELFPAY | PROVIDERS: PCP Family Medicine; Visit Provider Family Medicine | DX: E11.9 Type 2 diabetes mellitus without complications (principal); Z79.4 Long term (current) use of insulin; Z13.6 Encounter for screening for cardiovascular disorders | CPT/HCPCS: 80053; 80061; 83036; 83721; 85025 ==

== ENCOUNTER → 2023-11-30 15:27 | Outpatient (BNVA) | payer MEDICARE, MEDICAID, SELFPAY | PROVIDERS: PCP Family Medicine; Visit Provider Registered Nurse Neonatal Intensive Care | DX: R11.2 Nausea with vomiting, unspecified (principal); R19.7 Diarrhea, unspecified; K52.9 Noninfective gastroenteritis and colitis, unspecified | CPT/HCPCS: 87426 ==

== ENCOUNTER → 2024-04-01 14:49 | Outpatient (BNVA) | payer MEDICARE, MEDICAID, SELFPAY | PROVIDERS: PCP Family Medicine; Visit Provider Family Medicine | DX: E11.9 Type 2 diabetes mellitus without complications; Z79.4 Long term (current) use of insulin; E78.2 Mixed hyperlipidemia | CPT/HCPCS: 80053; 80061; 83036 ==

== ENCOUNTER 2024-04-05 12:21 | Outpatient (CLI) | payer MEDICARE, SELFPAY ==
--- NOTE | 2024-04-05 12:24 | XR_ITS ---
WS: [id number] Left knee, 3 views, 04/05/2024 Clinical Data: osteoarthritis Comparison: None. Findings: No fractures or dislocations are seen. The joint spaces are normal. The patella is intact. The soft t issues are unremarkable. XR/XR knee LT 3V* [id number] Impression: Negative left knee. Kellgren-Bipin Classification: grade 0 (none): definite absence of x-ray zia nges of osteoarthritis
--- NOTE | 2024-04-05 12:24 | XR_ITS ---
WS: [id number] Right knee, 3 views, 04/05/2024 Clinical Data: osteoporosis Comparison: Right thigh and femur, 08/20/2010. Findings: No fractures or dislocations are seen. There is minimal medial joint compartment narrowing. There are small spurs of the posterior patella. The soft tissues are unremarkable. XR/XR knee RT 3V* [id number] Impression: Minimal medial joint compartment narrowing and irregularity of the posterior ri ght patella. Kellgren-Bipin Classification: grade 1 (doubtful): doubtful joint space narr owing and possible osteophytic lipping
== END 2024-04-05 12:22 | disposition home or self-care (01) ==
LOC: RAD 12:24
PROVIDERS: PCP Family Medicine; Visit Provider Family Medicine
DX: M17.11 Unilateral primary osteoarthritis, right knee (principal); M25.761 Osteophyte, right knee
CPT/HCPCS: 73562

== ENCOUNTER → 2024-04-12 09:20 | Outpatient (BNVA) | payer MEDICARE, SELFPAY | PROVIDERS: PCP Family Medicine; Visit Provider Surgery | DX: K22.2 Esophageal obstruction (principal); R13.10 Dysphagia, unspecified; I85.00 Esophageal varices without bleeding | CPT/HCPCS: 99214 ==

== ENCOUNTER 2024-04-21 11:29 | Day surgery (SDC) | payer MEDICARE, SELFPAY ==
[2024-04-21 12:14] VITALS: BP 146/73; PULSE 76; RESP 18; TEMP 36.4; O2SAT 98; BMI 30.4
[2024-04-21] MEDS: sodium chloride 0.9% 500 ML 15 ML IV (12:21)
[2024-04-21 12:34] LABS: Glucose Point of Care 228 mg/dL (70-110)
--- NOTE | 2024-04-21 13:47 | P.ANESASSM_ITS ---
Pre-Anesthetic Assessment Height/Weight: Height 1.7 m Weight 87.997 kg Temp Pulse Resp BP Pulse Ox O2 Del Method 97.6 F 76 18 146/73 98 Room Air 04/21/24 12:14 04/21/24 12:14 04/21/24 12:14 04/21/24 12:14 04/21/24 12:14 04/21/24 12:14 Preop Diagnosis: varicies/dilation Operation Date: 04/21/24 12:45 Proposed Procedures p EGD Dilation W/ Balloon 92712, K22.2(Not Applicable) - Erick Leung DO Familial anesthetic complications: none Was Beta Riccardo taken within 24 hours: N/A Was Clonidine taken within 24 hours: N/A Last intake: Intake Last Liquid Date 04/21/24 Last Liquid Time 08:00 Last Solid Date 04/20/24 Last Solid Time 21:00 Social No alcohol and No tobacco Exam alert, oriented x 3, clear to auscultation bilaterally and regular rate & rhythm Airway Submandibular: within normal limits Cervical ROM: within normal limits Mallampati: Class II Dentition: false History/ROS No significant history except as noted and No significant complaints Pulmonary Sleep Apnea CV/HEM None reported None reported Hepatic None reported GI Gastroesophageal Reflux Disease Metabolic Diabetes [place] [facility] None reported Neuropsych Anxiety Anesthetic Plan ASA status: 3 Anesthesia: MAC Risk of > 500 ml blood loss (7ml/kg in children): No Medications/Allergies Home Medications Medication Instructions Recorded Confirmed Last Taken Type blood-glucose meter (Accu-Chek #1 ea 07/28/20 04/12/24 10/29/22 Rx Catrina Plus Meter) auto titrating CPAP #1 ea 05/10/21 04/12/24 10/29/22 Rx blood sugar diagnostic (Accu-Chek #100 ea 09/06/21 04/12/24 10/29/22 Rx Catrina Plus test strips) blood sugar diagnostic (Blood #50 ea 09/07/21 04/12/24 10/29/22 Rx Glucose Test strips) buspirone 5 mg tablet 5 mg PO TID PRN anxiety #90 tabs 03/18/22 04/19/24 1 Week Ago Rx ~04/12/24 cetirizine 10 mg tablet (Zyrtec) 10 mg PO DAILY PRN Allergy Symptoms 10/29/22 04/21/24 1 Week Ago History ~04/14/24 fluticasone propionate 50 2 spray intranasal DAILY PRN 10/29/22 04/21/24 3 Months Ago History mcg/actuation nasal Congestion ~01/21/24 spray,suspension insulin glargine 100 unit/mL (3 42 unit (0.42 mL) SUBCUT DAILY 90 08/19/23 04/19/24 04/20/24 Rx mL) subcutaneous pen (Lantus days #45 mL Solostar U-100 Insulin) fenofibrate nanocrystallized 145 145 mg PO DAILY #90 tabs 10/09/23 04/19/24 04/20/24 Rx mg tablet (Tricor) Pen [place] #1 ea 01/28/24 04/12/24 Unknown Rx atorvastatin 20 mg tablet 20 mg PO DAILY 04/19/24 04/19/24 04/20/24 History canagliflozin 300 mg tablet 300 mg PO DAILY 04/19/24 04/19/24 04/20/24 History (Invokana) furosemide 20 mg tablet 20 mg PO DAILY 04/19/24 04/19/24 04/20/24 History meloxicam 15 mg tablet 15 mg PO DAILY 04/19/24 04/19/24 04/20/24 History pantoprazole 40 mg tablet,delayed 40 mg PO DAILY 04/19/24 04/19/24 04/20/24 History release trazodone 50 mg tablet 50 mg PO DAILY PRN Insomnia 04/19/24 04/19/24 04/18/24 History Allergies Allergy/AdvReac Type Severity Reaction Status Date / Time codeine Allergy Mild Unknown Verified 04/01/24 13:57 Current Medications Generic Name Dose Route Start Last Admin Trade Name Freq PRN Reason Stop Dose Admin Sodium Chloride 500 mls @ 15 mls/hr 04/21/24 11:39 04/21/24 12:21 Sodium Chloride 0.9% IV 04/22/24 11:38 15 mls/hr .Q24H PRN Administration COLONOSCOPY FLUIDS PFSH Anesthesia Medical History Screening mammogram, encounter for Mild depression ALYSON (generalized anxiety disorder) Type 2 diabetes mellitus, without long-term current use of insulin History of COVID-19 Hyperlipidemia Hepatitis B core antibody positive Adrenal adenoma Diverticulitis Osteoarthritis Rheumatoid arthritis Follow-up with rheumatology Surgical History History of colonoscopy History of total hip arthroplasty right Status post colonoscopy (~2019) History of esophagogastroduodenoscopy (EGD) History of cataract surgery History of removal of ovarian cyst History of cholecystectomy History of hysterectomy Family History Father Cancer Grandmother Cancer Mother Diabetes Rheumatoid arthritis Denies family history of Anesthesia complication Bleeding disorder Social History Smoking and tobacco/nicotine status: never used tobacco/nicotine Alcohol intake: never Substance/Drug Use: never Data Anesthesia Cardiac Studies: Echocardiogram 10/23/22
--- NOTE | 2024-04-21 14:07 | W.PM.OPSUD ---
Surgery/Procedure H&P Update DATE OF PROCEDURE: April 21, 2024 DATE H&P PERFORMED: 04/12/24 H&P UPDATE INFORMATION: I have reviewed H&P completed within last 30 days, I have examined patient prior to procedure and No changes to prior documentation PREOP DIAGNOSIS: varicies/dilation PLANNED PROCEDURE: Operation Date: 04/21/24 12:45 Proposed Procedures p EGD Dilation W/ Balloon [id number], K22.2(Not Applicable) - Erick Leung DO
[2024-04-21 14:20] VITALS: BP 114/63; PULSE 61; RESP 18; TEMP 36.1; O2SAT 95
[2024-04-21 14:40] VITALS: BP 125/65; PULSE 61; RESP 16; O2SAT 98
--- NOTE | 2024-04-21 14:55 | ANE.PACU2 ---
Inpatient post-anesthesia follow up: Airway intact: Yes Vital signs: Temperature 97.0 F Pulse Rate 61 Respiratory Rate 16 Blood Pressure 125/65 Pulse Oximetry 98 Oxygen Delivery Me thod Room Air Oxygen Flow Rate Fraction of Inspir ed Oxygen Hydration adequate: Yes Nausea and vomiting: No Pain level: 1 Mental status: Baseline
== END 2024-04-21 14:55 | disposition home or self-care (01) ==
PROVIDERS: PCP Family Medicine; Visit Provider Surgery
DX: K22.2 Esophageal obstruction (principal); K29.50 Unspecified chronic gastritis without bleeding; G47.30 Sleep apnea, unspecified; K21.9 Gastro-esophageal reflux disease without esophagitis; E11.9 Type 2 diabetes mellitus without complications; F41.9 Anxiety disorder, unspecified; F41.1 Generalized anxiety disorder; E78.5 Hyperlipidemia, unspecified
CPT/HCPCS: 36416; 43239; 43249; 82962; 88305; 88342; J2704; J7040

== ENCOUNTER 2024-05-06 09:54 | Outpatient (CLI) | payer MEDICARE, SELFPAY ==
--- NOTE | 2024-05-06 10:00 | MM_ITS ---
WS: [id number] BILATERAL SCREENING DIGITAL TOMOSYNTHESIS MAMMOGRAM WITH CAD HISTORY: screening COMPARISON: 02/24/2023, 01/05/2018 Bilateral CC and MLO views with tomosynthesis and synthetic mammography submitted. Computer aided det ection analyzed. Breast composition: The breasts are heterogeneously dense, which may obscure small masses. No suspici ous masses, microcalcifications or architectural distortion. MM/MM scr BI tomosynthesis [id number] IMPRESSION: BI-RADS: 2 - Benign FOLLOW UP: 1 Year Follow-up
== END 2024-05-06 09:55 | disposition home or self-care (01) ==
LOC: MOBLMAM 09:57
PROVIDERS: PCP Family Medicine; Visit Provider Family Medicine
DX: Z12.31 Encounter for screening mammogram for malignant neoplasm of breast (principal); R92.333 Mammographic heterogeneous density, bilateral breasts
CPT/HCPCS: 77063; 77067

== ENCOUNTER 2024-07-10 16:51 | Emergency (ER) | payer MEDICARE, MEDICAID, SELFPAY ==
[2024-07-10 16:58] VITALS: BP 143/68; PULSE 68; RESP 20; TEMP 36.6; O2SAT 97; BMI 30.2
[2024-07-10 17:27] LABS: Bilirubin Urine Negative (Negative); Blood Urine 1+ (Negative); Glucose Urine UA 3+ (Normal); Ketones Urine Negative (Negative); Leukocyte Esterase Urine 2+ (Negative); Nitrate Urine Negative (Negative); Protein Urine Trace (Negative); Urine Appearance Cloudy (CLEAR); Urine Color Yellow (Yellow)
--- NOTE | 2024-07-10 17:29 | CTR_ITS ---
PROCEDURE INFORMATION: Exam: CT Abdomen And Pelvis With Contrast Exam date and time: 07/10/2024 6:10 PM Age: 74 years old Clinical indication: Fever and other: Dysuria; Abdominal pain; Localized; Prior surgery; Surgery date: 6+ months; Surgery type: Gb. Hysterectomy. Lul; C/O lower abd pain with fever and dysuria. TECHNIQUE: Imaging protocol: Computed tomography of the abdomen and pelvis with contrast. Radiation optimization: All CT scans at this facility use at least one of these dose optimization techniques: automated exposure control; mA and/or kV adjustment per patient size (includes targeted exams where dose is matched to clinical indication); or iterative reconstruction. Contrast material: OMNI 350; Contrast volume: 100 ml; Contrast route: INTRAVENOUS (IV); COMPARISON: CT angio chest w abd pel w con 03/23/2021 3:20 AM RADIATION DOSE METRICS: Total DLP (mGy-cm): 1638.22 FINDINGS: Lungs: Multiple stable pulmonary micronodules within partially included lung bases. Example includes 2 mm nodule within lateral right lower lung (4/7). Liver: Normal. No mass. Gallbladder and biliary ducts: Status post cholecystectomy. Mildly dilated common bile duct measures up to 13 mm, stable and likely related to post cholecystectomy state. Pancreas: Normal. No ductal dilation. Spleen: Calcified punctate granulomas within the spleen. Adrenal glands: 14 x 13 mm left adrenal gland nodule, stable. Kidneys and ureters: Normal. No hydronephrosis. Stomach and bowel: Colonic diverticulosis. Appendix: No evidence of appendicitis. Intraperitoneal space: Unremarkable. No free air. No significant fluid collection. Vasculature: Unremarkable. No abdominal aortic aneurysm. Lymph nodes: Unremarkable. No enlarged lymph nodes. Urinary bladder: Urinary bladder demonstrates nondependent focus of gas. Reproductive: Hysterectomy. Bones/joints: Status post right hip arthroplasty. Soft tissues: Unremarkable. CT/CT abdomen pelvis w con* [id number] IMPRESSION: 1. Colonic diverticulosis. 2. Focus of gas within urinary bladder, correlate with history of catheterization. 3. Status post cholecystectomy with stable prominence of common bile duct. 4. Stable 14 mm left adrenal gland nodule, not fully characterized. No follow-up is necessary. ([facility]) 5. Multiple stable pulmonary micronodules within partially included lung bases.For patients at low risk (minimal or absent history of smoking and of other known risk factors), no routine follow-up is indicated. For patients at high risk (history of smoking or of other known risk factors), consider optional CT Chest at 12 months. (Reference: Samira) REFERENCES: 1. Samira Ricketts, et al. Guidelines for Management of Incidental Pulmonary Nodules Detected on CT Images: From the Fleischner Society 2017. Radiology. 2017;284(1):228-243. 2. Meir MA, et al. Management of Incidental Adrenal Masses: A White Paper of the ACR Incidental Findings Committee. J Am Char Radiol. 2017;14(8):0817-2075.
[2024-07-10 17:34] LABS: Basophils % 0.7 %; Eosinophils # 0.1 10^3/uL (0.0-0.8); Hematocrit 40.4 % (36-47); Lymphocytes # 1.9 10^3/uL (0.8-4.8); Lymphocytes % 33.6 %; Mean Corpuscular HGB Conc 33.2 g/dL (30-55); Mean Corpuscular Hemoglobin 29.5 pg (27-33); Mean Platelet Volume 9.8 fL (7.4-10.4); Monocytes # 0.6 10^3/uL (0.2-0.9); Monocytes % 10.9 %; Neutrophils # 2.95 10^3/uL (1.8-7.7); Neutrophils % 52.6 %; Nucleated Red Blood Cells % 0 %; Platelet Count 225 10^3/cmm (157-399); Red Blood Count 4.54 10^6/uL (3.85-5.65); Red Cell Distribution Width 12.7 % (12.1-15.1)
[2024-07-10 17:36] LABS: Add Urine Microscopic? YES; Specific Gravity, Urine 1.039 (1.005-1.030); UA Manual Slide Review YES; UA Slide Review UA Slide Review Perf; WBC Urine TOO NUMEROUS TO CNT /hpf (0-5)
[2024-07-10 17:37] LABS: Add Urine Culture? Yes; Bacteria Urine 1+ /hpf
--- NOTE | 2024-07-10 17:43 | W.ED.ABDPA2 ---
HPI - Abdominal Pain General: Chief Complaint: Abdominal Pain Stated Complaint: fever, low abd pain Time Seen by Provider: 07/10/24 17:10 History of Present Illness: Patient is a nontoxic 74-year-old female who presents to the ER with 1 day of left lower quadrant abdominal pain. She has a history of diverticulitis in the past ultimately getting septic which was her primary concern and why she presented to the ER today. She has had some urinary frequency and hesitancy. She denies any nausea or vomiting. She denies any diarrhea. No black or bloody stools. She did have a fever up to 102 ?F yesterday. MD elicited complaint: abdominal pain Pain Consistency: constant Associated Symptoms: Reports dysuria; Denies chills, fever(s), nausea and vomiting Related Data Home Medications ?Medication ?Instructions ?Recorded ?Confirmed cetirizine 10 mg tablet (Zyrtec) 10 mg PO DAILY PRN Allergy Symptoms 10/29/22 06/03/24 fluticasone propionate 50 2 spray intranasal DAILY PRN 10/29/22 06/03/24 mcg/actuation nasal Congestion spray,suspension canagliflozin 300 mg tablet 300 mg PO DAILY 04/19/24 06/03/24 (Invokana) furosemide 20 mg tablet 20 mg PO DAILY 04/19/24 06/03/24 trazodone 50 mg tablet 50 mg PO DAILY PRN Insomnia 04/19/24 06/03/24 Previous Rx's ?Medication ?Instructions ?Recorded blood-glucose meter (Accu-Chek #1 ea 07/28/20 Catrina Plus Meter) auto titrating CPAP #1 ea 05/10/21 buspirone 5 mg tablet 5 mg PO TID PRN anxiety #90 tabs 03/18/22 insulin glargine 100 unit/mL (3 42 unit (0.42 mL) SUBCUT DAILY 90 08/19/23 mL) subcutaneous pen (Lantus days #45 mL Solostar U-100 Insulin) Pen [place] #1 ea 01/28/24 atorvastatin 20 mg tablet 20 mg PO DAILY #90 tabs 05/04/24 pantoprazole 40 mg tablet,delayed 40 mg PO BID 6 weeks #84 tabs 05/06/24 release (Protonix) fenofibrate nanocrystallized 145 145 mg PO DAILY #90 tabs 12/31/24 mg tablet (Tricor) meloxicam 15 mg tablet 15 mg PO DAILY #90 tabs 05/11/24 blood sugar diagnostic (Accu-Chek #100 ea 06/03/24 Catrina Plus test strips) ciprofloxacin HCl 500 mg tablet 500 mg PO Q12H #14 tabs 07/10/24 (Cipro) Allergies Allergy/AdvReac Type Severity Reaction Status Date / Time codeine Allergy Mild Unknown Verified 07/10/24 17:04 Review of Systems Const: Denies: fever(s), chills or diaphoresis Card: Denies: chest pain Resp: Denies: dyspnea GI: Reports: abdominal pain; Denies: nausea or vomiting : Reports: dysuria and urinary frequency Skin/Breast: Denies: rash Neuro: Denies: headache(s) PFSH ED PFSH: Medical History Screening mammogram, encounter for Mild depression ALYSON (generalized anxiety disorder) Type 2 diabetes mellitus, without long-term current use of insulin History of COVID-19 Hyperlipidemia Hepatitis B core antibody positive Adrenal adenoma Diverticulitis Osteoarthritis Rheumatoid arthritis Follow-up with rheumatology Surgical History History of colonoscopy History of total hip arthroplasty right Status post colonoscopy (~2019) History of esophagogastroduodenoscopy (EGD) History of cataract surgery History of removal of ovarian cyst History of cholecystectomy History of hysterectomy Family History Father Cancer Grandmother Cancer Mother Diabetes Rheumatoid arthritis Denies family history of Anesthesia complication Bleeding disorder Social History Smoking and tobacco/nicotine status: never used tobacco/nicotine Alcohol intake: never Substance/Drug Use: never Physical Exam Narrative: EXAM NARRATIVE: Well-appearing 74-year-old female who is awake alert in no acute distress Const: COMMON NORMALS: no acute distress, average body habitus, alert and well nourished GENERAL APPEARANCE: cooperative ORIENTATION/CONSCIOUSNESS: Yes awake HENMT: COMMON NORMALS: normocephalic and atraumatic HEAD & SCALP: normocephalic and atraumatic Eye: COMMON NORMALS: conjunctivae normal CONJUNCTIVA: Yes conjunctivae normal Neck/C-Spine: GENERAL: Yes normal visual inspection Resp: COMMON NORMALS: normal respiratory effort, No retractions and No use of accessory muscles Cardio: COMMON NORMALS: regular rhythm and Peripheral pulses 2+ throughout RHYTHM: regular rhythm PERIPHERAL PULSES: Peripheral pulses 2+ throughout GI: COMMON NORMALS: Soft to palpation PALPATION: Yes Soft to palpation OTHER: Soft, nondistended, diffuse abdominal tenderness primarily in the left lower quadrant right lower quadrant with some guarding. Extremity: COMMON NORMALS: full ROM and no pedal edema Neuro: COMMON NORMALS: no focal motor deficits SENSORIUM/ORIENTATION: Yes alert Skin: COMMON NORMALS: no rashes or lesions noted GENERAL SKIN EXAM: no rashes or lesions noted Course Vital Signs: Vital signs: Vital Signs Temperature 97.9 F 07/10/24 16:58 Pulse Rate 86 07/10/24 19:00 Respiratory Rate 16 07/10/24 19:00 Blood Pressure 159/82 07/10/24 19:00 Pulse Oximetry 97 07/10/24 19:00 Oxygen Delivery Me thod Room Air 07/10/24 19:00 MDM - Abdominal Pain Medical Decision Making Patient is a 74-year-old female who presents with lower abdominal pain and fever with some urinary frequency and hesitancy. She was quite diffusely tender in the lower abdomen. Basic labs were obtained which shows some hyperglycemia but otherwise stable labs. No significant leukocytosis. Lactic acid is not elevated. Urinalysis has too numerous to count white blood cells consistent with urinary tract infection. She was given a gram of IV Rocephin here. Urine culture has been sent. She does have a history of diverticulitis and was quite concerned about this and given her location of pain CT scan of the abdomen pelvis was obtained. She has a focus of gas within the urinary bladder that is likely due to her urinary tract infection. There is no evidence of acute diverticulitis. She has a stable left adrenal nodule that does not recommend any follow-up. She has some pulmonary nodules which she was informed about and will need to follow-up with her PCP for repeat CT scan in the next 12 months. Patient will be discharged with a prescription for ciprofloxacin and provided return precautions. Lab Data I reviewed the patient's lab results. 07/10/24 17:27 07/10/24 17:27 Labs/Radiology: Radiology Impressions Abdomen/Pelvis CT 07/10/24 17:29 IMPRESSION: 1. Colonic diverticulosis. 2. Focus of gas within urinary bladder, correlate with history of catheterization. 3. Status post cholecystectomy with stable prominence of common bile duct. 4. Stable 14 mm left adrenal gland nodule, not fully characterized. No follow-up is necessary. (Reference: Meir) 5. Multiple stable pulmonary micronodules within partially included lung bases.For patients at low risk (minimal or absent history of smoking and of other known risk factors), no routine follow-up is indicated. For patients at high risk (history of smoking or of other known risk factors), consider optional CT Chest at 12 months. (Reference: Samira) REFERENCES: 1. Samira H, et al. Guidelines for Management of Incidental Pulmonary Nodules Detected on CT Images: From the Fleischner Society 2017. Radiology. 2017;284(1):228-243. 2. Meir MA, et al. Management of Incidental Adrenal Masses: A White Paper of the ACR Incidental Findings Committee. J Am Char Radiol. 2017;14(8):7425-4515. Laboratory Results WBC 5.60 10^3/uL (3.29-11.43) 07/10/24 17:27 RBC 4.54 10^6/uL (3.85-5.65) 07/10/24 17:27 Hgb 13.40 g/dL (11.27-16.99) 07/10/24 17:27 Hct 40.4 % (36-47) 07/10/24 17:27 MCV 89.0 fl (85-98) 07/10/24 17:27 MCH 29.5 pg (27-33) 07/10/24 17:27 MCHC 33.2 g/dL (30-55) 07/10/24 17:27 RDW 12.7 % (12.1-15.1) 07/10/24 17:27 Plt Count 225 10^3/cmm (157-399) 07/10/24 17:27 MPV 9.8 fL (7.4-10.4) 07/10/24 17:27 Neut % (Auto) 52.6 % 07/10/24 17:27 Lymph % (Auto) 33.6 % 07/10/24 17:27 [place] % (Auto) 10.9 % 07/10/24 17:27 Eos % (Auto) 2.0 % 07/10/24 17:27 Baso % (Auto) 0.7 % 07/10/24 17:27 Neut # (Auto) 2.95 10^3/uL (1.8-7.7) 07/10/24 17:27 Lymph # (Auto) 1.9 10^3/uL (0.8-4.8) 07/10/24 17:27 [place] # (Auto) 0.6 10^3/uL (0.2-0.9) 07/10/24 17:27 Eos # (Auto) 0.1 10^3/uL (0.0-0.8) 07/10/24 17:27 Baso # (Auto) 0.0 10^3/uL (0.0-0.1) 07/10/24 17:27 Nucleated RBC % (auto) 0 % 07/10/24 17:27 Nucleated RBCs # 0.0 /100WBC 07/10/24 17:27 Sodium 137 mmol/L (136-145) 07/10/24 17:27 Potassium 3.9 mmol/L (3.5-5.1) 07/10/24 17:27 Chloride 103 mmol/L (98-107) 07/10/24 17:27 Carbon Dioxide 24 mmol/L (22-29) 07/10/24 17:27 Anion Gap 13.9 (5-19) 07/10/24 17:27 BUN 12 mg/dL (8-23) 07/10/24 17:27 Creatinine 0.6 mg/dL (0.5-0.9) 07/10/24 17:27 GFR Calculation Not Reportable 07/10/24 17:27 Glucose 337 mg/dL (65-115) H 07/10/24 17:27 Calculated Osmolality 297 mOsm/kg (285-295) H 07/10/24 17:27 Lactic Acid 2.1 mmol/L (0.5-2.2) 07/10/24 17:27 Calcium 8.5 mg/dL (8.5-10.5) 07/10/24 17:27 Total Bilirubin 0.5 mg/dL (0.15-1.2) 07/10/24 17:27 AST 15 U/L (0-32) 07/10/24 17:27 ALT 20 U/L (0-33) 07/10/24 17:27 Alkaline Phosphatase 67 U/L (35-105) 07/10/24 17:27 Total Protein 6.5 g/dL (6.6-8.7) L 07/10/24 17:27 Albumin 3.6 g/dL (3.5-5.2) 07/10/24 17:27 Globulin 2.9 g/dL (1.3-4.6) 07/10/24 17:27 Lipase 42 U/L (13-60) 07/10/24 17:27 Urine Color Yellow (Yellow) 07/10/24 17:12 Urine Appearance Cloudy (CLEAR) A 07/10/24 17:12 Urine pH 6.0 (5-7) 07/10/24 17:12 Ur Specific [place] 1.039 (1.005-1.030) H 07/10/24 17:12 Urine Protein Trace (Negative) A 07/10/24 17:12 Urine Glucose (UA) 3+ (Normal) H 07/10/24 17:12 Urine Ketones Negative (Negative) 07/10/24 17:12 Urine Blood 1+ (Negative) A 07/10/24 17:12 Urine Nitrate Negative (Negative) 07/10/24 17:12 Urine Bilirubin Negative (Negative) 07/10/24 17:12 Urine Urobilinogen 1.0 mg/dL (Negative) 07/10/24 17:12 Ur Leukocyte Esterase 2+ (Negative) A 07/10/24 17:12 Urine RBC 5-10 /hpf (0-2) H 07/10/24 17:12 Urine WBC Too numerous to cnt /hpf (0-5) H 07/10/24 17:12 Ur Squamous Epith Cells None /hpf (0-5) 07/10/24 17:12 Amorphous Sediment Not Reportable 07/10/24 17:12 Urine Bacteria 1+ /hpf (NONE) H 07/10/24 17:12 All radiology interpretation(s) finalized by discharge Discharge Plan Discharge Patient Disposition: Home Clinical Impression: Acute UTI Condition: Stable Prescriptions: New ciprofloxacin HCl [Cipro] 500 mg tablet 500 mg PO Q12H Qty: 14 0RF No Action (DME) auto titrating CPAP See Rx Instructions .Route .MEDSUPPLY Qty: 1 0RF Rx Instructions: As directed (DME) Accu-Chek Catrina Plus test strp Strip See Rx Instructions .ROUTE .MEDSUPPLY Qty: 100 5RF Rx Instructions: TWICE DAILY AND PRN buspirone 5 mg tablet 5 mg PO TID PRN (Reason: anxiety) Qty: 90 0RF pantoprazole [Protonix] 40 mg tablet,delayed release (DR/EC) 40 mg PO BID 42 Days Qty: 84 1RF (DME) blood-glucose meter [Accu-Chek Catrina Plus Meter] Misc See Rx Instructions .ROUTE .MEDSUPPLY Qty: 1 0RF Rx Instructions: As directed insulin glargine [Lantus Solostar U-100 Insulin] 100 unit/mL (3 mL) insulin pen 42 unit SUBCUT DAILY 90 Days Qty: 45 2RF (DME) Pen [place] See Rx Instructions .Route .MEDSUPPLY Qty: 1 3RF Rx Instructions: Use daily with Lantus insulin atorvastatin 20 mg tablet 20 mg PO DAILY Qty: 90 0RF Rx Instructions: TAKE ONE TABLET BY MOUTH AT BEDTIME meloxicam 15 mg tablet 15 mg PO DAILY Qty: 90 0RF Rx Instructions: TAKE 1 TABLET BY MOUTH DAILY fenofibrate nanocrystallized [Tricor] 145 mg tablet 145 mg PO DAILY Qty: 90 0RF cetirizine [Zyrtec] 10 mg tablet 10 mg PO DAILY PRN (Reason: Allergy Symptoms) fluticasone propionate 50 mcg/actuation spray,suspension 2 spray intranasal DAILY PRN (Reason: Congestion) Rx Instructions: ADMINISTER 2 SPRAYS INTO EACH NOSTRIL trazodone 50 mg tablet 50 mg PO DAILY PRN (Reason: Insomnia) Rx Instructions: TAKE ONE TABLET BY MOUTH DAILY NEEDED FOR INSOMNIA furosemide 20 mg tablet 20 mg PO DAILY Rx Instructions: TAKE ONE TABLET BY MOUTH EACH MORNING Invokana 300 mg tablet 300 mg PO DAILY Rx Instructions: TAKE ONE TABLET BY MOUTH DAILY Discharge Orders: Discharge ED (Routine); Ordered 07/10/24 Ordered By: Angelo Langston Referrals: Naima Tamayo DO [Primary Care Provider] - Discharge Activity: Resume usual activity Patient Instructions: Urinary Tract Infection in Women (DC), Opioid Safety, Pain Management Activity Restrictions/Additional Instructions: Continue home medications as previously directed. Drink plenty of fluids to stay hydrated. Follow-up with your primary care provider for recheck next week. Discussed the CT scan results from your visit today for further outpatient follow-up of these results. Below are the results from your CT scan today. 1. Colonic diverticulosis. 2. Focus of gas within urinary bladder, correlate with history of catheterization. 3. Status post cholecystectomy with stable prominence of common bile duct. 4. Stable 14 mm left adrenal gland nodule, not fully characterized. No follow-up is necessary. (Reference: LeeTrip) 5. Multiple stable pulmonary micronodules within partially included lung bases.For patients at low risk (minimal or absent history of smoking and of other known risk factors), no routine follow-up is indicated. For patients at high risk (history of smoking or of other known risk factors), consider optional CT Chest at 12 months. (Reference: Samira) Print Language: Telugu Coding Level of Care Code ED Forming Machine Upkeep Mechanic for Gregory Pereira
[2024-07-10 17:50] LABS: Lactic Sepsis W/Reflex 2.1 mmol/L (0.5-2.2)
[2024-07-10 17:51] LABS: Alanine Aminotransferase 20 U/L (0-33); Albumin Level 3.6 g/dL (3.5-5.2); Alkaline Phosphatase 67 U/L (35-105); Anion Gap 13.9 (5-19); Aspartate Amino Transferase 15 U/L (0-32); Blood Urea Nitrogen 12 mg/dL (8-23); Calcium 8.5 mg/dL (8.5-10.5); Carbon Dioxide 24 mmol/L (22-29); Chloride 103 mmol/L (98-107); Creatinine Clr Calc Pharmacy 67.1951; Globulin 2.9 g/dL (1.3-4.6); Glucose 337 mg/dL (65-115); Lipase 42 U/L (13-60); Osmolality Calculated 297 mOsm/kg (285-295); Potassium 3.9 mmol/L (3.5-5.1); Sodium 137 mmol/L (136-145); Total Bilirubin 0.5 mg/dL (0.15-1.2); Total Protein 6.5 g/dL (6.6-8.7)
[2024-07-10] MEDS: sodium chloride 0.9% 1,000 ML 999 ML IV (17:55)
[2024-07-10 18:00] VITALS: BP 144/55; RESP 16; O2SAT 98
[2024-07-10 18:07] LABS: Reflex Lactate Order REFLEX LACTIC ORDERD
[2024-07-10] MEDS: iohexol 350 mg/mL 500 mL Btl (per mL) IV (18:18)
[2024-07-10] MEDS: cefTRIAXone 1,000 MG in water for injection-sterile 2.1 ML 2.1 MG IV (18:57)
[2024-07-10 19:00] VITALS: BP 159/82; PULSE 86; RESP 16; O2SAT 97
[2024-07-10 20:26] VITALS: BP 150/61; PULSE 62; RESP 14; O2SAT 99
== END 2024-07-10 20:25 | disposition home or self-care (01) ==
PROVIDERS: Emergency Provider Student in an Organized Health Care Education/Training Program; PCP Family Medicine
DX: N39.0 Urinary tract infection, site not specified (principal); Z79.4 Long term (current) use of insulin; E11.9 Type 2 diabetes mellitus without complications; E78.5 Hyperlipidemia, unspecified
CPT/HCPCS: 36415; 74177; 80053; 81001; 83605; 83690; 85025; 87040; 87077; 87086; 87186; 96374; 99285; J0696; J7030

== ENCOUNTER → 2024-10-05 08:33 | Outpatient (BNVA) | payer MEDICARE, SELFPAY | PROVIDERS: PCP Family Medicine; Visit Provider Family Medicine | DX: E11.9 Type 2 diabetes mellitus without complications (principal); Z79.4 Long term (current) use of insulin | CPT/HCPCS: 80053; 82043; 83036 ==

== ENCOUNTER → 2024-11-26 17:41 | Outpatient (BNVA) | payer MEDICARE, SELFPAY | PROVIDERS: PCP Family Medicine; Visit Provider Emergency Medicine | DX: J02.9 Acute pharyngitis, unspecified (principal); J06.9 Acute upper respiratory infection, unspecified | CPT/HCPCS: 87071; 87880 ==

== ENCOUNTER 2024-12-31 08:52 | Outpatient (CLI) | payer MEDICARE, SELFPAY ==
--- NOTE | 2024-12-31 09:03 | XRR_ITS ---
PROCEDURE INFORMATION: Exam: XR Chest Exam date and time: 12/31/2024 9:08 AM Age: 74 years old Clinical indication: Abnormal findings; Positive tb skin testing; PT stated positive tb blood test yesterday TECHNIQUE: Imaging protocol: Radiologic exam of the chest. Views: 2 views. COMPARISON: CT angio chest w abd pel w con 03/23/2021 3:20 AM FINDINGS: Lungs: No focal consolidation. Pleural spaces: No pleural effusion. No pneumothorax. Heart/Mediastinum: No cardiomegaly. Bones/joints: Degenerative changes of the spine. Organs: Cholecystectomy clips. XR/XR chest 2V* [id number] IMPRESSION: No focal consolidation. No definite radiographic evidence of active tuberculosis infection however consider CT for further evaluation if there is persistent clinical concern.
== END 2024-12-31 08:53 | disposition home or self-care (01) ==
PROVIDERS: PCP Family Medicine; Visit Provider Internal Medicine
DX: M05.9 Rheumatoid arthritis with rheumatoid factor, unspecified (principal); R76.11 Nonspecific reaction to tuberculin skin test without active tuberculosis; Z79.899 Other long term (current) drug therapy
CPT/HCPCS: 71046; 80053; 83036

== ENCOUNTER → 2025-01-20 08:12 | Outpatient (BNVA) | payer MEDICARE, SELFPAY | PROVIDERS: PCP Family Medicine; Visit Provider Family Medicine | DX: T50.905A Adverse effect of unspecified drugs, medicaments and biological substances, initial encounter (principal); X58.XXXA Exposure to other specified factors, initial encounter | CPT/HCPCS: 85025 ==

== ENCOUNTER → 2025-03-03 08:54 | Outpatient (BNVA) | payer MEDICARE, SELFPAY | PROVIDERS: PCP Family Medicine; Visit Provider Family Medicine | DX: E55.9 Vitamin D deficiency, unspecified (principal); Z86.39 Personal history of other endocrine, nutritional and metabolic disease | CPT/HCPCS: 82306 ==

== ENCOUNTER → 2025-05-09 09:22 | Outpatient (BNVA) | payer MEDICARE, SELFPAY | PROVIDERS: PCP Family Medicine; Visit Provider Family Medicine | DX: E11.9 Type 2 diabetes mellitus without complications (principal); Z79.4 Long term (current) use of insulin | CPT/HCPCS: 80053; 80061; 83036 ==